=== PATIENT | female | born 1940 | race Caucasian/White ===

== ENCOUNTER → 2016-08-24 17:16 | Outpatient (CLI) | payer MEDICARE, OTHER, MEDICAID ==
[2016-06-22 14:11] VITALS: BMI 33.4
[~2016-08-24 17:16] MED LIST: ACETAMINOPHEN325 MG PO; ADVAIR 500/501 DISK INH; ASCORBIC ACID500 MG PO; ASPIRIN81 MG PO; ATROVENT 0.02%2.5 ML INH; ATROVENT 0.02%2.5 ML UPD; ATROVENT HFA12.9 GM INH; AUGMENTIN 875-11 TAB PO; AZOPT 1% OPHT D10 ML EACH EYE; BAYER CHEWABLE81 MG PO; BENICAR HCT 40-1 TA1 PO; BENZONATATE200 MG PO; BIOTIN5 MG PO; BROVANA15 MCG/2 M INH; BUMEX 1 MG TAB1 MG PO; CALCIUM 600 +1 EAC3 PO; CALTRATE 600 M600 M1 PO; CALTRATE-600600 MG PO; CARAFATE1 G PO; CARAFATE1 G/10 ML PO; CARBIDOPA-LEVO1 EAC2 PO; CATAPRES0.1 MG; CATAPRES0.1 MG PO; CELEBREX200 MG PO; CENTRUM COMPLE1 EACH PO; CENTRUM SILVER1 TA2 PO; CLEOCIN HCL150 MG PO; COLACE100 MG PEG; COLACE50 MG/5 ML PO; COREG 3.1253.125 MG PO; DIFLUCAN100 MG PO; DIFLUCAN150 MG PO; DOCUSOFT S100 MG PO; DOXEPIN HCL10 MG PO; DUONEB 2.5-0.5 M3 ML NEB; ESTRACE1 MG PO; FEOSOL LIQ300 MG/5 M PO; FERROUS SULFAT325 MG PO; FISH OIL 1,0001 CA1 PO; FISH OIL 1,2001 CA1 PO; FLUTICASONE PRO16 GM NASAL; FUROSEMIDE20 MG PO; GABAPENTIN100 MG PO; GLUCOTROL XL 1010 MG PO; GUAIFENESI100 MG/5 M NG; HUMALOG 30100 UNITS/ SC; HYDROCODON-ACE1 EAC7 PO; HYDROCODONE-APA1 TAB PO; IPRAT-ALBUT 0.5-3 ML NEB; IPRAT-ALBUT 0.5-3 ML UPD; ISOSORBIDE DINI30 MG PO; ISOSORBIDE MONO30 M1; ISOSORBIDE MONO30 M1 PO; JANUVIA50 MG PO; K-DUR20 MEQ PO; K-TAB10 MEQ PO; KEFLEX500 MG PO; KLONOPIN1 MG PEG; KLONOPIN1 MG PO; LASIX20 MG PO; LASIX40 MG PEG; LASIX40 MG PO; LEVAQUIN500 MG PO; LINZESS145 MCG PO; LIPITOR10 MG PO; LISINOPRIL10 MG PO; LOPRESSOR25 MG PO; LUMIGAN 0.01%2.5 ML EACH EYE; LUMIGAN 0.01%2.5 ML RIGHT EYE; LUMIGAN 0.03 %2.5 ML EACH EYE; MAG-OX 400 MG400 MG PO; MEDROL DOSE PACK4 MG PO; MELATONIN 10 M1 EACH PO; MELATONIN 3 MG1 TAB PO; METOPROLOL TART50 MG PO; METROGEL 0.75 %45 GM TOPICAL; METROGEL 0.75 %45 GM TP; MICRO-K10 MEQ PEG; MIRALAX17 GM PO; MIRALAX527 GM PO; MIRAPEX0.125 MG PO; MS CONTIN15 MG PO; MUCINEX D1 TAB.SR . PO; MUCINEX DM ER1 EAC1 PO; MULTI-DAY VITAM1 TAB PO; MYCELEX TROCHE10 MG PO; NEURONTIN 300300 MG PO; NEXIUM40 MG PO; NIFEREX-150 CAP1 CA3 PO; NITROSTAT0.4 MG SL; NORCO 10/325 TA1 TA1 PO; NORVASC10 MG PO; NUEDEXTA 20-101 EACH PO; NYSTATIN ORAL SU5 ML PEG; NYSTATIN ORAL SU5 ML PO; OMNICEF300 MG PO; ONCOLOGY MOUTHWA5 ML PO; PEPCID20 MG PO; PERFOROMIS20 MCG/21 INH; PERFOROMIS20 MCG/21 NEB; PLAVIX75 MG PO; POTASSIUM CHLO10 ME1 PO; POTASSIUM20 MEQ/15 PO; PRAVACHOL20 MG PO; PREDNISONE1 MG PO; PREDNISONE10 MG PO; PREDNISONE20 MG PO; PRENATABS RX TA1 TAB PO; PRENAVITE1 TAB PO; PROBIOTIC1 EAC1 PO; PROTONIX40 MG PO; PULMICORT0.5 MG/21 INH; PULMICORT0.5 MG/21 NEB; ROBAXIN-750750 MG PO; SENNA-C8.6 MG PO; SENOKOT-S TABLE1 TAB PO; SINEMET 25-1001 EACH PO; SINEMET 25/1001 TAB PO; SINEMET CR 50-1 EACH PO; SINEMET CR 51 TAB.S1 PO; SINEQUAN25 MG PO; SINEQUAN50 MG PO; SINGULAIR10 MG PO; SKELAXIN800 MG PO; STELAZINE5 MG PO; STERAPRED DS 1210 MG PO; TENORMIN100 MG PO; TENORMIN50 MG PO; TESSALON PERLE100 MG PO; TOPROL XL25 MG PO; TUMS500 MG PO; TUSSIONEX 5 ML S5 ML PO; TUSSIONEX PENN473 ML PO; TYLENOL325 MG PO; ULTRAM50 MG PO; VIBRAMYCIN 100100 MG PEG; VIBRAMYCIN 100100 MG PO; VITAMIN E1000 UNIT PO; VITAMIN E400 UNI2 PO; XALATAN 0.0052.5 ML EACH EYE; XOPENEX 1.1.25 MG/3 UPD; XOPENEX HFA15 GM INH; ZANAFLEX2 M1 PO; ZITHROMAX250 MG PO; ZITHROMAX500 MG PO; ZOFRAN4 MG PO; ZOFRAN8 MG PO; ZOSYN 3.3753.375 G1 IV; ZPAK PO; ZYRTEC10 MG PO
== END | disposition home or self-care (01) ==
LOC: D.MAMMO 13:15
DX: Z12.31 Encounter for screening mammogram for malignant neoplasm of breast (principal)

== ENCOUNTER 2016-08-26 11:39 | Inpatient (IN) | payer MEDICARE, OTHER, MEDICAID ==
[~2016-08-26] VITALS: Ht 162.6 cm; Wt 90.0 kg
[~2016-08-26 11:39] MED LIST changes: -BENZONATATE200 MG PO; -GUAIFENESI100 MG/5 M NG; -VIBRAMYCIN 100100 MG PEG
[2016-08-26 12:35] LABS: BASOPHILS 0.1 % (0.0-2.0); EOSINOPHILS 1.7 % (0-7); HEMATOCRIT 43.6 % (36.0-48.0); HEMOGLOBIN 14.1 g/dL (12-16); IMMATURE GRANULOCYTES 0.3 % (0-5); LYMPHOCYTES 17.6 % (15-50); MCH 30.1 pg (26.0-34.0); MCHC 32.3 g/dL (31.0-37.0); MCV 93.2 fL (80.0-100.0); MEAN PLATELET VOLUME 9.9 fL (7.4-10.4); MONOCYTES 5.4 % (2-11); NEUTROPHILS 74.9 % (40-80); PLATELET COUNT 238 10x3/uL (130-400); RBC 4.68 10x6/uL (4.00-5.40); RDW 14.9 % (11.5-14.5); WBC 14.5 10x3/uL (4.8-10.8)
[2016-08-26 12:59] LABS: ALBUMIN 3.3 g/dL (3.4-5.0); ANION GAP 6.7 mmol/L (8-16); BILIRUBIN - TOTAL 0.54 mg/dL (0.2-1.3); CALCIUM 9.6 mg/dL (8.5-10.1); CARBON DIOXIDE 37.3 mmol/L (21.0-32.0); CREATININE - SERUM 1.1 mg/dL (0.6-1.3); PROTEIN - SERUM 6.4 g/dL (6.4-8.2)
[2016-08-26 13:28] LABS: UDS - AMPHET NEGATIVE QUAL (NEGATIVE); UDS - BARB NEGATIVE QUAL (NEGATIVE); UDS - BENZO NEGATIVE QUAL (NEGATIVE); UDS - COCAINE NEGATIVE QUAL (NEGATIVE); UDS - METH NEGATIVE QUAL (NEGATIVE); UDS - OPIATE POSITIVE QUAL (NEGATIVE); UDS - PCP NEGATIVE QUAL (NEGATIVE); UDS - THC NEGATIVE QUAL (NEGATIVE)
[2016-08-26 13:39] LABS: APPEARANCE CLEAR (CLEAR); BILIRUBIN NEGATIVE (NEGATIVE); COLOR YELLOW (YELLOW); GLUCOSE NEGATIVE (NEGATIVE); KETONE NEGATIVE (NEGATIVE); LEUKOCYTE ESTERASE 2+ (NEGATIVE); NITRITE NEGATIVE (NEGATIVE); PROTEIN TRACE mg/dL (NEGATIVE); UROBILINOGEN NORMAL (NORMAL)
[2016-08-26 13:40] LABS: BACTERIA MANY /hpf (NONE SEEN); EPITHELIAL CELLS 0-5 /hpf (0-5); MUCUS <1+ /lpf (NONE SEEN); RED CELLS - URINE 0-5 /hpf (0-5); WHITE CELLS - URINE >50 /hpf (0-5)
[2016-08-26 19:01] LABS: HEMOGLOBIN A1C 7.3 % (4.8-6.0)
[2016-08-26] MEDS ORDERED: PEPCID20 MG PO (20:29)
--- NOTE | 2016-08-26 20:30 | NUR ---
PT ARRIVED ON UNIT VIE STRETCHER ESCORTED BY ER NURSES. TRANSFERRED TO BED AND POSITIONED FOR COMFORT. PT LETHARGIC BUT RESPONDS TO VOICE. SORTO CATHETER DRAINING TO GRAVITY WITH YELLOW URINE IN COLLECTION BAG. IV IN LEFT FA SALINE LOCKED. WILL MONITOR CLOSLEY FOR NEEDS.
--- NOTE | 2016-08-26 21:09 | NUR ---
CALLED [facility] TO REQUEST PAIN MED PER PT REQUEST. PER DR FLANAGAN SEDATING MEDS ARE ON HOLD TILL PT AWAKE AND ALERT. RECEIVED ORDER TO RESTART PUREED DIET FOR PLEASURE WITH THICKENED LIQUIDS. AND JEVITY 1.2 X6 CANS DAILY BOLUS FEEDS.
--- NOTE | 2016-08-26 22:24 | NUR ---
HS MEDICATIONS GIVEN VIA PEG TUBE. GAVE 1 CAN JEVITY 1.2 VIA PEG TUBE PER DIET ORDERS. WILL CONTINUE TO MONITOR FOR NEEDS. CALL LIGHT WITHIN REACH.
--- NOTE | 2016-08-26 22:30 | NUR ---
GAVE 4 OZ THICKENED APPLE JUICE PER PT REQUEST. SAT UP AT 90 DEGREES. PT TOLERATED WELL.
[2016-08-26 23:08] VITALS: BP 109/50; BMI 34.1
--- NOTE | 2016-08-26 23:25 | NUR ---
ADMISSION ASSESSMENT AND HISTORY COMPLETED.
[2016-08-27 02:30] VITALS: BP 142/91
--- NOTE | 2016-08-27 02:47 | NUR ---
PT WAS WALKING PASS THE DESK, FULLY DRESSED WITH HER SHOES ON. ASKER HER WHERE SHE WAS GOING, AND SHE SAID SHE WAS GOING TO GET HER SOMETHING TO EAT. ENCOURAGED HER TO GO BACK TO ROOM AND UNDRESSED TO FIND THE SORTO TUBING DISCONNECTED, AND DRIPPING DOWN HER LEG. RE-CONNECTED SORTO TUBING AND PLACED GOWN ON PT. SHE ASKED FOR A "CAN OF MILK". GAVE HER A CAN OF JEVITY 1.2 VIA PEG TUBE, AND 1 CUP OF APPLE JUICE, HONEY THICKENED, WITH PT SITTING UP AT 90 DEGREES. SHE CALLED A FAMILY MEMBER, WHO TOLD HER THEY WOULD BE HERE IN THE AM.
--- NOTE | 2016-08-27 03:35 | NUR ---
PT RESTING QUIETLY IN SEMI KRISHNA'S POSITION WITH EYES CLOSED AND EASY RESPIRATIONS. BED ALARM IN USE FOR SAFETY.
[2016-08-27 06:42] LABS: BASOPHILS 0.1 % (0.0-2.0); EOSINOPHILS 1.3 % (0-7); HEMATOCRIT 43.3 % (36.0-48.0); IMMATURE GRANULOCYTES 0.3 % (0-5); LYMPHOCYTES 14.4 % (15-50); MCH 29.9 pg (26.0-34.0); MCHC 32.3 g/dL (31.0-37.0); MCV 92.3 fL (80.0-100.0); MEAN PLATELET VOLUME 9.5 fL (7.4-10.4); MONOCYTES 6.3 % (2-11); NEUTROPHILS 77.6 % (40-80); RBC 4.69 10x6/uL (4.00-5.40); RDW 14.7 % (11.5-14.5); WBC 14.5 10x3/uL (4.8-10.8)
[2016-08-27 06:49] LABS: PLATELET COUNT 184 10x3/uL (130-400)
[2016-08-27 07:19] LABS: CALCIUM 8.7 mg/dL (8.5-10.1); POTASSIUM - SERUM 3.5 mmol/L (3.5-5.1)
[2016-08-27 07:34] LABS: CREATININE - SERUM 0.8 mg/dL (0.6-1.3)
[2016-08-27 07:35] LABS: ANION GAP 4.5 mmol/L (8-16)
--- NOTE | 2016-08-27 08:10 | NUR ---
ASSESSMENT PER FLOW SHEET.PT WITHOUT DISTRESS.FALL PREVENTION IN PROGRESS.BED ALARM BED ON AND FUNCTIONING.CALL LIGHT IN REACH.DOOR OPEN
[2016-08-27 08:35] VITALS: BP 148/75
--- NOTE | 2016-08-27 12:00 | NUR ---
REMAINS WITHOUT NEEDS,WITHOUT DISTRESS.CONT TO MONITOR
[2016-08-27 12:36] VITALS: Ht 162.6 cm; Wt 90.0 kg
[2016-08-27 13:31] VITALS: BP 147/77
[2016-08-27 16:17] VITALS: BP 166/70
--- NOTE | 2016-08-27 17:57 | NUR ---
REMAINS WITHOUT CHANGE.CONT PLAN OF CARE
--- NOTE | 2016-08-27 19:00 | NUR ---
BEDSIDE REPORT RECEIVED AND CARE OF PT ASSUMED. PT LYING IN SEMI KRISHNA'S POSITION WITH EYES CLOSED. SORTO CATHETER DRAINING TO GRAVITY WITH YELLOW URINE IN COLLECTION BAG. O2 IN USE AT 4L VIA NC. TELEMETRY IN PLACE, REPLACED BATTERIES...WILL CHECK ON READING. SIDE RAILS UP X2 FOR SAFETY. BED ALARM IN USE.
[2016-08-27 20:00] VITALS: BP 148/71
--- NOTE | 2016-08-27 21:15 | NUR ---
HS MEDICATIONS GIVEN...PILLS PO WITH APPLESAUCE WITH PT SITTING UP AT 90 DEGREES. GAVE LIQUID POTASSIUM VIA PEG TUBE. GAVE 1 CAN JEVITY 1.2 PER ORDER. FLUSHED TUBE WITH 60 ML OF WATER. WILL CONTINUE TO MONITOR FOR NEEDS.
--- NOTE | 2016-08-28 00:05 | NUR ---
ALARM SOUNDING...PT UP IN ROOM CARRYING AROUND A STOOL COVERED PINK PAD. RE-ORIENTED PT AND LED HER TO TOILET WHERE SHE FINISHED HAVING BM. BATHED HER AND CHANGED GOWN AND ALL LINENS. CHANGED ALL TELEMETRY PADS. CHANGED DRESSING AROUND PEG TUBE. POSITIONED PT BACK IN BED FOR COMFORT. WILL CONTINUE TO MONITOR FOR NEEDS. BED ALARM IN USE. SIDE RAILS UP X3 FOR SAFETY. CALL LIGHT WITHIN REACH.
--- NOTE | 2016-08-28 03:40 | NUR ---
BED ALARM SOUNDING...ENTERED ROOM TO FIND PT CLIMBING OUT OF BED HOLDING HER SORTO BAG TO HER CHEST, SAYING SHE NEEDS TO GET OUT OF HERE. RE-ORIENTED PT TO SITUATION. SHE REQUESTED "CAN OF MILK"...GAVE 1 CAN JEVITY 1.2 PER ORDER, AND FLUSHED WITH 60 ML OF WATER. PT RESTING QUIETLY AT THIS TIME. WILL CONTINUE TO MONITOR FOR NEEDS.
[2016-08-28 04:00] VITALS: BP 119/58
[2016-08-28 05:50] LABS: BASOPHILS 0 % (0.0-2.0); EOSINOPHILS 0 % (0-7); HEMATOCRIT 44.8 % (36.0-48.0); HEMOGLOBIN 14.6 g/dL (12-16); IMMATURE GRANULOCYTES 0.4 % (0-5); LYMPHOCYTES 5.3 % (15-50); MCH 30.1 pg (26.0-34.0); MCHC 32.6 g/dL (31.0-37.0); MCV 92.4 fL (80.0-100.0); MEAN PLATELET VOLUME 10.7 fL (7.4-10.4); MONOCYTES 0.3 % (2-11); PLATELET COUNT 178 10x3/uL (130-400); RBC 4.85 10x6/uL (4.00-5.40); RDW 14.3 % (11.5-14.5); WBC 15.4 10x3/uL (4.8-10.8)
[2016-08-28 06:16] LABS: ANION GAP 10.2 mmol/L (8-16); CALCIUM 9.6 mg/dL (8.5-10.1); CARBON DIOXIDE 32.1 mmol/L (21.0-32.0); CREATININE - SERUM 0.9 mg/dL (0.6-1.3)
[2016-08-28 06:24] LABS: POTASSIUM - SERUM 4.3 mmol/L (3.5-5.1)
[2016-08-28 08:13] VITALS: BP 127/56
--- NOTE | 2016-08-28 09:00 | NUR ---
ASSESSMENT PER FLOW SHEET.PT WITHOUT DITRESS.UP AND ABOUT IN ROOM,GAIT STEADY.PT UP TO CHAIR.CALL LIGHT IN REACH.MONITR FOR NEEDS
[2016-08-28 12:26] VITALS: BP 125/73
--- NOTE | 2016-08-28 14:30 | NUR ---
FAMILY AT BEDSIDE,WITHOUT DISTRESS.CALL LIGHT IN REACH.
--- NOTE | 2016-08-28 15:56 | NUR ---
Patient Name: CODY SCHAEFER Admission Status: ER Accout number: [id number] Admission Date: 08-26-2016 : 1940 Admission Diagnosis:CHRONIC OBSTRUCTIVE PULMON DISEASE W ACUTE LOWER RESP I Attending: BRITTANEY Current LOS: 2 Anticipated DC Date: 09-01-2016 Planned Disposition: Home with Home Health Primary Insurance: MEDICARE A & B Discharge Planning Comments: CM MET WITH PATIENT REGARDING D/C NEEDS AND PLANS. PATIENT STATED SHE LIVES WITH HER DAUGHTER (VERÓNICA) AND THERE ARE 2 STEPS TO ENTER HOME AND NO STAIRS INSIDE. PATIENT STATED SHE HAS BEEN WALKING W/O A WALKER AT HOME BUT HAS A WALKER, OXYGEN, PORTABLE O2, CANE, BS COMMODE, SHOWER CHAIR, AND NEBULIZER AT HOME. PATIENT IS CURRENT WITH [email or web address] W/PT. PATIENTS PCP IS DR. FLANAGAN AND PHARMACY IS [facility]. PATIENT STATED HER NEIGHBOR ([place]) WILL DRIVE HER HOME WHEN DISCHARGED. CM WILL CONTINUE TO FOLLOW PATIENT WITH D/C NEEDS AND PLANS. PCP DR. PANCHIT[facility]- [phone] VERÓNICA ISAÍAS (DAUGHTER) [phone] FEMI POLLACK (SON) [phone] Hair Dresser: Arlettetye Roman Is the patient Alert and Oriented? Yes 0 * How many steps to enter\exit or inside your home? 2 W/RAILS 0 * PCP DR. FLANAGAN 0 * Pharmacy [facility] 0 * Preadmission Environment Home with Family 0 * ADLs Partial Dependent 0 * Partial ADLs (Assistance needed) Medication Management 0 * Equipment Bedside Commode Cane Nebulizer Oxygen Shower Chair Walker Wheelchair 0 * List name and contact numbers for known caregivers / representatives who currently or will assist patient after discharge: FEMI POLLACK [phone] VERÓNICA METZ [phone] * Community resources currently utilized Home Health 0 * Please name any agencies selected above. [email or web address] 0 * Additional services required to return to the preadmission environment? Yes 0 * Can the patient safely return to the preadmission environment? Yes 0 * Has this patient been hospitalized within the prior 30 days at any hospital? No 0 Grand Total: 0
[2016-08-28 16:02] VITALS: BP 136/87
--- NOTE | 2016-08-28 18:47 | NUR ---
REMAINS WITHOUT NEEDS,WITHOUT CHANE FROM INITIAL ASSESSMENT.CONT PLAN OF CARE
[2016-08-28 21:00] VITALS: BP 157/72
--- NOTE | 2016-08-29 00:06 | NUR ---
AWAKE IN BED GETTING A COMPLETE BEDBATH BY TIPPLE REPAIRER. GOOD MOOD AND NO DISTRESS NOTED. THE BED IS LOW, RAILS UP X'S 2 WITH THE CALL LIGHT AT HAND.
--- NOTE | 2016-08-29 00:08 | NUR ---
PT IS UP IN BEDSIDE CHAIR EATING A SNACK. HE C/O A HEADACHE AND ASSIGNED NURSE WAS FOUND TO BE AWARE AND GETTING HIS PAIN MEDS ORDERED. THE BED IS LOW, RAILS UP X'S 2 WITH THE CALL LIGHT AT HAND.
[2016-08-29 02:15] VITALS: BP 145/72
[2016-08-29 04:00] VITALS: BP 144/75
[2016-08-29 06:48] LABS: MCHC 32.6 g/dL (31.0-37.0); MEAN PLATELET VOLUME 9.9 fL (7.4-10.4); PLATELET COUNT 244 10x3/uL (130-400); RDW 14.3 % (11.5-14.5); WBC 26.2 10x3/uL (4.8-10.8)
[2016-08-29 06:59] LABS: ANION GAP 10.6 mmol/L (8-16); CALCIUM 9.9 mg/dL (8.5-10.1); CARBON DIOXIDE 31.4 mmol/L (21.0-32.0); CREATININE - SERUM 0.9 mg/dL (0.6-1.3)
[2016-08-29 07:07] LABS: LYMPHOCYTES 9 % (15-50); MONOCYTES 2 % (2-11); NEUTROPHILS 86 % (40-80); PLATELET ESTIMATE NORMAL
[2016-08-29 10:36] VITALS: BP 126/61
[2016-08-29 11:32] VITALS: BP 116/62
[2016-08-29 15:12] VITALS: BP 135/62
[2016-08-29 20:00] VITALS: BP 148/68
[2016-08-30] VITALS: BP 116/71
[2016-08-30 04:00] VITALS: BP 119/68
--- NOTE | 2016-08-30 05:45 | NUR ---
PATIENT LAYING IN BED, MODERATE AMOUNT OF PAIN NOTED BY PATIENT DURING THE NIGHT, ALERT AND ORIENTED WITH CPAP ON. SORTO CATHETER IN PLACE. BED IN LOWEST LOCKED POSITION, CALL LIGHT WITHIN REACH, HOB ELEVATED 20 DEGREES.
[2016-08-30 05:55] LABS: BASOPHILS 0 % (0.0-2.0); EOSINOPHILS 0.1 % (0-7); HEMATOCRIT 42.1 % (36.0-48.0); HEMOGLOBIN 13.6 g/dL (12-16); IMMATURE GRANULOCYTES 0.2 % (0-5); LYMPHOCYTES 9.4 % (15-50); MCH 29.6 pg (26.0-34.0); MCHC 32.3 g/dL (31.0-37.0); MCV 91.5 fL (80.0-100.0); MEAN PLATELET VOLUME 9.9 fL (7.4-10.4); MONOCYTES 1.8 % (2-11); NEUTROPHILS 88.5 % (40-80); PLATELET COUNT 200 10x3/uL (130-400); RDW 14.2 % (11.5-14.5)
[2016-08-30 06:23] LABS: ANION GAP 11.3 mmol/L (8-16); CALCIUM 8.8 mg/dL (8.5-10.1); CARBON DIOXIDE 31.6 mmol/L (21.0-32.0); CREATININE - SERUM 0.8 mg/dL (0.6-1.3); POTASSIUM - SERUM 3.9 mmol/L (3.5-5.1)
--- NOTE | 2016-08-30 07:30 | NUR ---
SLEEPING QUIETLY AT PRESENT RESP EVEN AND UNLABORED AT PRESENT 02 AT 2L N/C QUIET IN ROOM N/C VOICED.
--- NOTE | 2016-08-30 09:00 | NUR ---
SITTING UP IN CHAIR 02 CONT AT 2L N/C AT PRESENT.
[2016-08-30 09:01] VITALS: BP 126/62
--- NOTE | 2016-08-30 10:00 | NUR ---
WATCHING TV AT PRESENT DENIES ANY NEEDS AT PRESENT.
--- NOTE | 2016-08-30 12:00 | NUR ---
LUNCH TAKEN 100% AT PRESENT.
[2016-08-30 12:06] VITALS: BP 150/69
--- NOTE | 2016-08-30 14:00 | NUR ---
UP IN CHAIR AT PRESENT DANIEL WELL AT PRESENT.
--- NOTE | 2016-08-30 16:00 | NUR ---
FAMILY AT BEDSIDE AT PRESENT N/C AT PRESENT.
[2016-08-30 16:26] VITALS: BP 124/63
--- NOTE | 2016-08-30 18:28 | NUR ---
STATUS REMAINS UNCHGD AT PRESENT.
[2016-08-30 19:00] VITALS: BP 122/70
[2016-08-31] VITALS: BP 120/57
[2016-08-31 04:00] VITALS: BP 136/61
--- NOTE | 2016-08-31 04:00 | NUR ---
PATIENT SLEEPING WITH NO DISTRESS NOTED. O2 @ 2L VIA NC. LEFT PORT SL WITH DRESSING CDI. SCD'S ON. SRX2. BED LOW. CALL LIGHT WITHIN REACH.
--- NOTE | 2016-08-31 04:35 | NUR ---
PATIENT'S CALLED THE FLOOR AND WAS INFORMED OF THE PATIENT'S FALL, AND OF SKIN TEAR TO THE LEFT FOREARM.
--- NOTE | 2016-08-31 04:49 | NUR ---
1 CAN OF JEVITY 1.2 GIVEN THROUGH PEG TUBE THEN FLUSHED WITH 60mL WATER, ALL GRAVITY FEEDS, PER PATIENT'S REQUEST.
[2016-08-31 05:38] LABS: BASOPHILS 0 % (0.0-2.0); EOSINOPHILS 0 % (0-7); HEMATOCRIT 40.5 % (36.0-48.0); HEMOGLOBIN 13.9 g/dL (12-16); IMMATURE GRANULOCYTES 0.4 % (0-5); LYMPHOCYTES 8.9 % (15-50); MCHC 34.3 g/dL (31.0-37.0); MCV 90.2 fL (80.0-100.0); MEAN PLATELET VOLUME 9.8 fL (7.4-10.4); MONOCYTES 3.5 % (2-11); NEUTROPHILS 87.2 % (40-80); PLATELET COUNT 176 10x3/uL (130-400); RBC 4.49 10x6/uL (4.00-5.40); RDW 13.7 % (11.5-14.5); WBC 11.9 10x3/uL (4.8-10.8)
[2016-08-31 06:05] LABS: ALKALINE PHOSPHATASE 62 U/L (46-116); ALT (SGPT) 11 U/L (10-68); BILIRUBIN - TOTAL 0.54 mg/dL (0.2-1.3); CALC OSMOLALITY 283 mosm/kg (275-300); CALCIUM 8.9 mg/dL (8.5-10.1); CARBON DIOXIDE 29.9 mmol/L (21.0-32.0); CHLORIDE - SERUM 103 mmol/L (98-107); CREATININE - SERUM 0.7 mg/dL (0.6-1.3); GLUCOSE 175 mg/dL (74-106); POTASSIUM - SERUM 4.1 mmol/L (3.5-5.1); PROTEIN - SERUM 6.1 g/dL (6.4-8.2); SODIUM 140 mmol/L (136-145); UREA NITROGEN 15 mg/dL (7-18); eGFR NON AFRICAN AMERICAN 86 mL/min (90-120)
--- NOTE | 2016-08-31 07:55 | NUR ---
ASSESSMENT PER FLOW SHEET.PT WITHOUT DISTRESS.DENIES NEEDS. CALL LIGHT IN REACH.ISOLATION MAINTAINED
[2016-08-31 08:18] VITALS: BP 139/63
[2016-08-31 12:27] VITALS: BP 136/60
--- NOTE | 2016-08-31 14:46 | NUR ---
NUTRITION MONITORING & EVAL CHART REVIEWED. PT REMAINS IN ISOLATION. ADA PUREED DIET. GOOD PO INTAKE PER NURSING REPORT. JEVITY 1.[address] FOLLOWING
[2016-08-31 15:55] VITALS: BP 125/67
[2016-08-31 19:00] VITALS: BP 128/67
--- NOTE | 2016-08-31 20:00 | NUR ---
ASSESSMENT PER FLOWSHEET. IV INFUSAPORT PATENT TO THE LEFT CHEST SALINE LOCKED. PEG TUBE PATENT AND CLAMPED. TELM. SHOWS SR WITH HR 78. O2 ON 2L/M PER NC NO DISTRESS. SR UP X2 CALL LIGHT WITHIN REACH. PT IN CONTACT ISOLATION FOR [place] IN THE URINE. [facility] STUDENTS CARING FOR PATIENT THIS EVENING.
--- NOTE | 2016-08-31 21:15 | NUR ---
MEDS GIVEN PER MAR PER [facility] STUDENT AND INSTRUCTOR. PT ASSISTED UP TO BR VOIDS IN COMMODE.
--- NOTE | 2016-08-31 23:30 | NUR ---
RESTING QUIETLY DENIES NEEDS.
--- NOTE | 2016-09-01 01:30 | NUR ---
EYE CLOSED RPIRATION WITH EASE AND UNLABORED.
--- NOTE | 2016-09-01 03:28 | NUR ---
RESTING QUIETLY RESPIRATIONS WITH EASE AND UNLABORED.
[2016-09-01 04:00] VITALS: BP 150/73
[2016-09-01 05:39] LABS: BASOPHILS 0 % (0.0-2.0); EOSINOPHILS 0.1 % (0-7); HEMATOCRIT 41.4 % (36.0-48.0); HEMOGLOBIN 13.7 g/dL (12-16); IMMATURE GRANULOCYTES 0.2 % (0-5); LYMPHOCYTES 10.5 % (15-50); MCH 29.8 pg (26.0-34.0); MCHC 33.1 g/dL (31.0-37.0); MCV 90.2 fL (80.0-100.0); MEAN PLATELET VOLUME 9.9 fL (7.4-10.4); MONOCYTES 4.9 % (2-11); NEUTROPHILS 84.3 % (40-80); PLATELET COUNT 182 10x3/uL (130-400); RBC 4.59 10x6/uL (4.00-5.40); RDW 13.9 % (11.5-14.5); WBC 12.1 10x3/uL (4.8-10.8)
--- NOTE | 2016-09-01 06:06 | NUR ---
MEDS GIVEN PO PER MAR. NO CHANGES IN ASSESSMENT PT HAS VOIDED TONIGHT.
[2016-09-01 06:09] LABS: CALC OSMOLALITY 283 mosm/kg (275-300); CALCIUM 8.7 mg/dL (8.5-10.1); CARBON DIOXIDE 30.6 mmol/L (21.0-32.0); CHLORIDE - SERUM 103 mmol/L (98-107); CREATININE - SERUM 0.7 mg/dL (0.6-1.3); GLUCOSE 149 mg/dL (74-106); POTASSIUM - SERUM 4.1 mmol/L (3.5-5.1); SODIUM 140 mmol/L (136-145); UREA NITROGEN 17 mg/dL (7-18); eGFR NON AFRICAN AMERICAN 86 mL/min (90-120)
[2016-09-01 07:59] VITALS: BP 120/81
--- NOTE | 2016-09-01 09:00 | NUR ---
ASSESSMENT PER FLOW SHEET.PT WITHOUT DISTRESS.CALL LIGHT IN REACH.ASSIST OF TO BATHROOM AND BACK TO BED.ISOLATION MAINTAINED.
[2016-09-01] MEDS ORDERED: PREDNISONE10 MG PO (10:10)
[2016-09-01 12:06] VITALS: BP 136/59
--- NOTE | 2016-09-01 13:01 | NUR ---
IV ABX COMPLETE.PORT NEEDLE DCD.PT TOLERATED WELL.DISCHARGE INSTRUCTIONS PREVIOUSLY,PT STATES UNDERSTANDING.
--- NOTE | 2016-09-01 13:15 | NUR ---
LEFT FLOOR VIA WHEELCHAIR FOR TRANSPORT HOME
--- NOTE | 2016-09-01 13:19 | NUR ---
CM REASSESSMENT NOTE: PATIENT D/C HOME TODAY BY PRIVATE VEHICLE. CURRENT WITH [facility] - RESUMPTION OF CARE.
--- NOTE | 2016-09-25 13:49 | CN ---
PATIENT NAME:CODY THOMPSON MEDICAL RECORD: [id number] : 42 LOCATION:D.MS [facility]25 ADMIT DATE: 08/26/16 ACCOUNT: [id number] CONSULTING PHYSICIAN: EDGAR WILSON MD REFERRING PHYSICIAN: SHRUTHI FLANAGAN M.D. DATE OF CONSULTATION: 08/27/2016 CONSULT REQUESTING PHYSICIAN: Shruthi Flanagan MD REASON FOR CONSULTATION: Acute exacerbation of chronic obstructive pulmonary disease, leukocytosis, pneumonia, left lower lobe. HISTORY OF PRESENT ILLNESS: Ms. Thompson is a 76-year-old female with a history of COPD, Parkinson's disease. Currently, she was brought into the ER. The patient was confused. According to the son, she might have taken extra pain medications. Now, she is more awake and alert. She had significant leukocytosis on admission. Denies any fever and chill. She is still eating by mouth as well as she has a PEG tube. REVIEW OF SYSTEMS: Mainly in the history of present illness. PAST MEDICAL HISTORY: 1. Chronic obstructive pulmonary disease, home oxygen dependent. 2. Chronic hypoxic respiratory failure. 3. Parkinson disease. 4. Fibromyalgia. 5. Migraine headache. 6. History of glaucoma. 7. Hypertension. 8. Congestive heart failure. 9. Coronary artery disease. 10. Renal disease. 11. History of obstructive sleep apnea, on CPAP. PAST SURGICAL HISTORY: 1. Hysterectomy. 2. Cholecystectomy. 3. Herniorrhaphy. 4. Cataract surgery. 5. Colon resection secondary to bowel obstruction status post PEG tube placement. ALLERGIES: SHE IS ALLERGIC TO BARBITURATES, ALBUTEROL, BUSPIRONE, STADOL, VALIUM, DILAUDID, IODINE, LEVOFLOXACIN, LISINOPRIL, LORAZEPAM, COMPAZINE, PHENERGAN, AND DARVOCET. MEDICATIONS: She is on Zithromax IV. She is on Rocephin IV, Xopenex nebulizer, Brovana and budesonide nebulizer. Her medication is reviewed. PERSONAL AND SOCIAL HISTORY: The patient is an ex-smoker. She is a nondrinker. FAMILY HISTORY: Noncontributory. PHYSICAL EXAMINATION: GENERAL: Now, the patient is lying comfortably. She is not in acute distress. CONSULT REPORT [id number] CODY THOMPSON VITAL SIGNS: The blood pressure is 147/77, pulse is 100, respirations 16, temperature 99.1, and SpO2 is 93% on 4 liters. HEENT: Conjunctivae pink, sclerae nonicteric. NECK: Supple, no JVD. CHEST: Excursion is minimal on both sides. There are bilateral crackles. Wheeze on forceful expiration. HEART: Regular, normal sound, no murmur. ABDOMEN: Soft, bowel sounds present. No hepatosplenomegaly. RECTAL: Deferred. EXTREMITIES: No cyanosis, no clubbing, no pedal edema. SKIN: Warm, normal turgor. CENTRAL NERVOUS SYSTEM: The patient is awake and alert. There is increased muscle tone. LABORATORY DATA: CBC: WBC is 14.5, hemoglobin 14.1, hematocrit 43.6, and the platelet count is 238. Chemistry: Sodium 142, potassium 3.5, BUN is 26, creatinine 0.8, and glucose 135. Toxic screen positive for opiates. IMPRESSION: 1. Acute exacerbation of chronic obstructive pulmonary disease. 2. Pneumonia, left lower lobe, possible community-acquired pneumonia, possibly aspiration with the patient's history of dysphagia. 3. Leukocytosis. 4. Acute mental status changes, possible metabolic encephalopathy secondary to pneumonia infection, possible narcotic. 5. Parkinson disease. 6. Chronic hypoxic respiratory failure. 7. Gastroesophageal reflux disease. RECOMMENDATION: 1. We will follow the swallowing evaluation and aspiration precaution. 2. Continue Rocephin and Zithromax. 3. Xopenex nebulizer. Add ipratropium nebulizer, Brovana, budesonide nebulizer. Start methylprednisolone IV. 4. Follow up labs and chest radiograph in the morning. Dr. Flanagan, once again thanks for involving me in the care of Ms. Thompson. TRANSINT:[id number] Voice Confirmation ID: [id number] DOCUMENT ID: [id number] EDGAR WILSON MD at 1349 CC: SHRUTHI FLANAGAN M.D. [id number] DICTATION DATE: 08/27/16 1417 CONCRETE SPREADER: 08/27/16 1450 DIS IN 09/01/16 [place] [id number] [facility] [place] [address]
== END 2016-09-01 13:15 | disposition home health service (06) | DRG 190 ==
LOC: D.ER 11:39 → D.MS 18:49
PROVIDERS: Emergency Medicine; ADMIT Family Medicine
PROC: 0T9B70Z Drainage of Bladder with Drainage Device, Via Natural or Artificial Opening (ICD-10-PCS; principal; 2016-08-26)
DX: J44.0 Chronic obstructive pulmonary disease with (acute) lower respiratory infection (principal); J18.1 Lobar pneumonia, unspecified organism; G93.41 Metabolic encephalopathy; N39.0 Urinary tract infection, site not specified; J96.10 Chronic respiratory failure, unspecified whether with hypoxia or hypercapnia; G20 Parkinson's disease; G62.9 Polyneuropathy, unspecified; Z86.73 Personal history of transient ischemic attack (TIA), and cerebral infarction without residual deficits; J44.1 Chronic obstructive pulmonary disease with (acute) exacerbation; M79.7 Fibromyalgia; I25.10 Atherosclerotic heart disease of native coronary artery without angina pectoris; R13.10 Dysphagia, unspecified; K21.9 Gastro-esophageal reflux disease without esophagitis; E11.65 Type 2 diabetes mellitus with hyperglycemia; B96.20 Unspecified Escherichia coli [E. coli] as the cause of diseases classified elsewhere; B96.89 Other specified bacterial agents as the cause of diseases classified elsewhere; I10 Essential (primary) hypertension; G89.29 Other chronic pain; K58.9 Irritable bowel syndrome, unspecified; Z12.31 Encounter for screening mammogram for malignant neoplasm of breast

== ENCOUNTER 2016-09-06 13:03 | Inpatient (IN) | payer MEDICARE, OTHER, MEDICAID ==
[~2016-09-06] VITALS: Ht 162.6 cm; Wt 86.2 kg
[2016-09-06 13:53] LABS: BASOPHILS 0.1 % (0.0-2.0); EOSINOPHILS 0.1 % (0-7); HEMATOCRIT 39.1 % (36.0-48.0); HEMOGLOBIN 12.6 g/dL (12-16); IMMATURE GRANULOCYTES 0.3 % (0-5); LYMPHOCYTES 3.6 % (15-50); MCH 29.8 pg (26.0-34.0); MCHC 32.2 g/dL (31.0-37.0); MCV 92.4 fL (80.0-100.0); MEAN PLATELET VOLUME 9.6 fL (7.4-10.4); MONOCYTES 4.4 % (2-11); NEUTROPHILS 91.5 % (40-80); PLATELET COUNT 149 10x3/uL (130-400); RBC 4.23 10x6/uL (4.00-5.40); RDW 15.3 % (11.5-14.5); WBC 15.5 10x3/uL (4.8-10.8)
[2016-09-06 14:21] LABS: ALBUMIN 2.7 g/dL (3.4-5.0); BILIRUBIN - TOTAL 0.5 mg/dL (0.2-1.3); CALCIUM 8.5 mg/dL (8.5-10.1); CREATININE - SERUM 0.8 mg/dL (0.6-1.3); MAGNESIUM - SERUM 1.8 mg/dL (1.8-2.4); POTASSIUM - SERUM 4.2 mmol/L (3.5-5.1); PROTEIN - SERUM 5.7 g/dL (6.4-8.2)
[2016-09-06 14:24] LABS: ANION GAP 7.9 mmol/L (8-16); TROPONIN-I 0.016 ng/mL (0.000-0.060)
[2016-09-06 14:25] LABS: CARBON DIOXIDE 41.3 mmol/L (21.0-32.0)
--- NOTE | 2016-09-06 15:39 | NUR ---
Patient Name: CODY SCHAEFER Admission Status: ER Accout number: [id number] Admission Date: 09-06-2016 : 1940 Admission Diagnosis: Resp Failure Attending: TOI Current LOS: 1 Anticipated DC Date: 09-11-2016 Planned Disposition: Return home with daughter and [facility]. Primary Insurance: MEDICARE A & B Discharge Planning Comments: Cm met with patient to complete initial discharge planning assessment. Patient on BIPBP resting in the ER. CM spoke to patient's daughter Marlen who gave consent to complete assessment. Marlen reports patient lives at home with her, has [facility], and CG assistance from 8-2:30 7 days a week. Marlen reports patient will return to her home at discharge with resumption of [facility] and continuation of cg's services daily. CM will continue to follow and assist with dc plan/needs. Welding Machine Operator Electro Gas: Kiera Cleveland RN, [facility] [phone] Is the patient Alert and Oriented? Yes * How many steps to enter\exit or inside your home? TWO * PCP Dr. Ramirez * Pharmacy [facility] * Preadmission Environment Home with Family * ADLs Partial Dependent * Partial ADLs (Assistance needed) Bathing Dressing Medication Management Transfers * Equipment Bedside Commode [facility] Bed Oxygen Rolling Walker * Other Equipment [facility] * List name and contact numbers for known caregivers / representatives who currently or will assist patient after discharge: Marlen Swift - daughter - [phone] [employer] son - [phone] * Community resources currently utilized Home Health Private Duty Care * Please name any agencies selected above. [facility] CG's 7 days a week from 8-2:30 * Additional services required to return to the preadmission environment? No * Can the patient safely return to the preadmission environment? Yes * Has this patient been hospitalized within the prior 30 days at any hospital? Yes
[2016-09-06 16:36] VITALS: BP 122/63; BMI 32.7
--- NOTE | 2016-09-06 19:55 | NUR ---
PATIENT RESTING IN BED. BIPAP IN PLACE. NO SIGNS OF DISTRESS NOTED. DENIES ANY NEEDS AT THIS TIME. BED LOW. CALL LIGHT IN REACH.
[2016-09-06 21:00] VITALS: BP 137/69
[2016-09-07 01:00] VITALS: BP 128/70
[2016-09-07 05:00] VITALS: BP 131/80
[2016-09-07 05:14] LABS: BASOPHILS 0.1 % (0.0-2.0); EOSINOPHILS 0 % (0-7); HEMATOCRIT 39.5 % (36.0-48.0); HEMOGLOBIN 12.8 g/dL (12-16); IMMATURE GRANULOCYTES 0.3 % (0-5); LYMPHOCYTES 1.1 % (15-50); MCH 29.8 pg (26.0-34.0); MCHC 32.4 g/dL (31.0-37.0); MCV 92.1 fL (80.0-100.0); MEAN PLATELET VOLUME 9.9 fL (7.4-10.4); MONOCYTES 2.2 % (2-11); NEUTROPHILS 96.3 % (40-80); PLATELET COUNT 154 10x3/uL (130-400); RBC 4.29 10x6/uL (4.00-5.40); RDW 14.9 % (11.5-14.5); WBC 15.3 10x3/uL (4.8-10.8)
--- NOTE | 2016-09-07 05:30 | NUR ---
ASSISTED STAFFANI PULLING THE PATIENT UP IN BED AND REPOSITIONING HER. PATIENT DENIES OTHER NEEDS AT THIS TIME. BED IN LOWEST POSITION AND CALL LIGHT WITHIN REACH.
[2016-09-07 05:31] LABS: CREATININE - SERUM 0.9 mg/dL (0.6-1.3); MAGNESIUM - SERUM 2.2 mg/dL (1.8-2.4); PHOSPHOROUS 4.2 mg/dL (2.5-4.9); POTASSIUM - SERUM 3.7 mmol/L (3.5-5.1)
[2016-09-07 05:50] LABS: ANION GAP 7.7 mmol/L (8-16)
[2016-09-07 07:59] VITALS: BP 139/72
--- NOTE | 2016-09-07 08:14 | NUR ---
PT. AOX4 RESP LABORED BIPAP REMOVED VIA PT. REQUEST AT THIS TIME. PT. DENIES NEEDS AT THIS TIME. LEFT SUBCLAVIAN PORT PATENT AND FUNCTIONING PROPERLY. BED AT LOWEST SETTING AND CALL LIGHT WITHIN REACH. WILL CONTINUE TO MONITOR
[2016-09-07 11:31] VITALS: BP 140/72
[2016-09-07 12:21] VITALS: Ht 162.6 cm; Wt 86.2 kg
[2016-09-07 16:12] VITALS: BP 146/71
--- NOTE | 2016-09-07 19:10 | NUR ---
RECIEVED SHIFT REPORT. PT IS LYING IN BED. ALERT AND ORIENTED AND ABLE TO VERBALIZE NEEDS. IV IS PATENT AND ANTIBIOTIC RUNNING AT THIS TIME. O2 @ 4 PER NASAL CANNULA AT THIS TIME. BIPAP IS AT THE BEDSIDE IF NEEDED. SORTO IS DRAINING URINE BY GRAVITY. PT REQUIRES SOME ASSISTANCE TURNING IN BED FOR COMFORT AND SKIN CARE. PEG TUBE TO LEFT ABDOMEN PATENT AND FEED RUNNING PER ORDER. PT STATES PAIN IS 2/10. NO NEEDS ARE VERBALIZED AT THIS TIME. WILL CONTINUE TO MONITOR. SIDE RAILS ARE UP X 2. BED IS IN LOWEST POSITION. BOX ALARM IS ON FOR SAFETY. CALL LIGHT IS WITHIN REACH.
[2016-09-07 21:00] VITALS: BP 128/67
--- NOTE | 2016-09-07 22:56 | NUR ---
SHIFT ASSESSMENT COMPLETED. NIGHT MEDS GIVEN WITH NO PROBLEMS. PT RECIEVED 6 UNITS INSULIN PER SLIDING SCALE FOR ZTHC=[id number]. NO NEEDS ARE VOICED. WILL MONITOR. SIDE RAILS X 2. BED LOW. BOX ALARM ON. CALL LIGHT IN REACH.
[2016-09-08 01:00] VITALS: BP 122/68
[2016-09-08 05:00] VITALS: BP 132/72
[2016-09-08 06:27] LABS: BASOPHILS 0 % (0.0-2.0); EOSINOPHILS 0 % (0-7); HEMATOCRIT 39.5 % (36.0-48.0); HEMOGLOBIN 12.7 g/dL (12-16); IMMATURE GRANULOCYTES 0.3 % (0-5); LYMPHOCYTES 1.8 % (15-50); MCH 29.5 pg (26.0-34.0); MCHC 32.2 g/dL (31.0-37.0); MCV 91.6 fL (80.0-100.0); MONOCYTES 2.8 % (2-11); NEUTROPHILS 95.1 % (40-80); PLATELET COUNT 160 10x3/uL (130-400); RBC 4.31 10x6/uL (4.00-5.40); RDW 14.8 % (11.5-14.5); WBC 13.6 10x3/uL (4.8-10.8)
[2016-09-08 06:57] LABS: ALBUMIN 2.5 g/dL (3.4-5.0); BILIRUBIN - TOTAL 0.5 mg/dL (0.2-1.3); CARBON DIOXIDE 38.5 mmol/L (21.0-32.0); CREATININE - SERUM 1.1 mg/dL (0.6-1.3); PROTEIN - SERUM 6.2 g/dL (6.4-8.2)
[2016-09-08 07:00] LABS: ANION GAP 7.6 mmol/L (8-16); POTASSIUM - SERUM 3.1 mmol/L (3.5-5.1)
--- NOTE | 2016-09-08 07:15 | NUR ---
REPORT RECEIVED FROM DIGITAL ARTIST NURSE. CALL LIGHT IN REACH.
--- NOTE | 2016-09-08 09:15 | NUR ---
ASSESSMENT COMPLETED. CALL LIGHT IN REACH. WILL CONTINUE WITH PLAN OF CARE.
[2016-09-08 09:47] VITALS: BP 140/69
--- NOTE | 2016-09-08 11:59 | NUR ---
AM MEDS ADMINISTERED. CALL LIGHT IN REACH. FEEDING INCREASED TO 40 CC/HR
--- NOTE | 2016-09-08 13:43 | NUR ---
QUIET IN ROOM AT PRESENT DENIES ANY NEEDS AT THIS TIME RESP EVEN AND UNLABORED AT PRESENT.
--- NOTE | 2016-09-08 14:23 | NUR ---
PT REMAINS DIFFICULT TO UNDERSTAND. ASKED PT IF SHE FELT LIKE SITTING UP IN CHAIR AND SHE WAS AGREEABLE TO DO SO, HOWEVER, AFTER GETTING PAD PLACED IN CHAIR, PT DECIDED SHE DID NOT WANT TO SIT UP; PT WAS ABLE TO AMB TO RESTROOM WITH MIN ASSIST BUT POOR SAFETY AWARENESS NOTED, SHE WAS NOT AWARE OF TUBES THAT COULD HAVE EASILY BE PULLED OUT, SHE BEGAN TO GET UP WITHOUT ASSIST; EDUCATED PT ON SAFETY AWARENESS
[2016-09-08 14:31] VITALS: BP 145/65
--- NOTE | 2016-09-08 14:36 | NUR ---
MORPHINE WITH AFTERNOON MEDS ADMINISTERED PER PEG. BREATHING TREATMENT GOING AT THIS TIME.
--- NOTE | 2016-09-08 15:14 | NUR ---
VANCOMYCIN IVPB. CALL LIGHT IN REACH.
[2016-09-08 15:57] VITALS: BP 166/81
--- NOTE | 2016-09-08 16:32 | NUR ---
RESTING WITH EYES CLOSED. RESP EVEN AND UNLABROED. CALL LIGHT IN REACH.
--- NOTE | 2016-09-08 18:18 | NUR ---
NO CHANGES IN INITIAL ASSESSMENT. CALL LIGHT IN REACH. ALARM ON. WILL CONTINUE WITH PLAN OF CARE.
[2016-09-08 21:00] VITALS: BP 144/75
--- NOTE | 2016-09-08 22:40 | NUR ---
PATIENT RESTING IN BED. NASAL CANULA IN PLACE. NO SIGNS OF DISTRESS NOTED AT THIS TIME. ASSESSMENT COMPLETED. SCHEDULED MEDS GIVEN. DENIES ANY NEEDS AT THIS TIME. BED LOW. CALL LIGHT IN REACH
[2016-09-09 01:00] VITALS: BP 133/66
--- NOTE | 2016-09-09 01:59 | NUR ---
PATIENT RESTING IN BED WITH BIPAP ON. BED IN LOWEST POSITION AND CALL LIGHT WITHIN REACH.
[2016-09-09 05:00] VITALS: BP 141/60
[2016-09-09 06:33] LABS: BASOPHILS 0.1 % (0.0-2.0); EOSINOPHILS 0 % (0-7); HEMATOCRIT 40.6 % (36.0-48.0); IMMATURE GRANULOCYTES 0.5 % (0-5); LYMPHOCYTES 1.9 % (15-50); MCH 29.6 pg (26.0-34.0); MCV 92.5 fL (80.0-100.0); MEAN PLATELET VOLUME 10.3 fL (7.4-10.4); MONOCYTES 3.3 % (2-11); NEUTROPHILS 94.2 % (40-80); PLATELET COUNT 154 10x3/uL (130-400); RBC 4.39 10x6/uL (4.00-5.40); RDW 14.7 % (11.5-14.5); WBC 12.3 10x3/uL (4.8-10.8)
[2016-09-09 06:54] LABS: ALBUMIN 2.3 g/dL (3.4-5.0); ANION GAP 8.4 mmol/L (8-16); BILIRUBIN - TOTAL 0.4 mg/dL (0.2-1.3); CALCIUM 8.5 mg/dL (8.5-10.1); CARBON DIOXIDE 37.8 mmol/L (21.0-32.0); CREATININE - SERUM 1.1 mg/dL (0.6-1.3); POTASSIUM - SERUM 3.2 mmol/L (3.5-5.1)
--- NOTE | 2016-09-09 09:00 | NUR ---
ASSESSMENT PER FLOW SHEET.PT WITHOUT DISTRESS.CALL LIGHT IN REACH.BOX ALARM IN PLACE
--- NOTE | 2016-09-09 10:44 | NUR ---
NUTRITION MONITORING & EVAL CHART REVIEWED, PT VISIT. PUREED DIET WITH HONEY THICK LIQUIDS STARTED. TOLERATING JEVITY 1.2 @ GOAL RATE 60 CC/HR. RD FOLLOWING
[2016-09-09 11:04] VITALS: BP 149/76
[2016-09-09 11:48] VITALS: BP 170/79
--- NOTE | 2016-09-09 12:40 | NUR ---
PAIN MEDS ORDERED PER SEP.
[2016-09-09 16:35] VITALS: BP 162/79
--- NOTE | 2016-09-09 18:47 | NUR ---
REMAINS WITHOUT NEEDS,WITHOUT CHANGE.CONT PLAN OF CARE
--- NOTE | 2016-09-09 19:00 | NUR ---
BEDSIDE REPORT RECEIVED AND CARE OF PT ASSUMED. PT LYING IN SEMI KRISHNA'S POSITION WATCHING TV. IV IN LEFT PORT PATENT WITH NS INFUSING AT KVO. O2 IN USE AT 4L VIA NC AND SPO2 93% AT THIS ASSESSMENT. PEG TUBE PATENT WITH JEVITY 1.2 INFUSING AT 30 ML/HR VIA FEEDING PUMP. WILL MONITOR CLOSELY FOR NEEDS. CALL LIGHT WITHIN REACH. BED ALARM IN USE.
[2016-09-09 20:48] VITALS: BP 187/76
--- NOTE | 2016-09-09 21:11 | NUR ---
HS MEDICATIONS GIVEN. FSBS 288 AT THIS CHECK REQUIRING COVERAGE WITH 10 UNITS INSULIN PER SLIDING SCALE. HS SNACK OF PUDDING AND PRUNE JUICE GIVEN, PT REQUESTING SOMETHING FOR CONSTIPATION. WILL CONTINUE TO MONITOR CLOSELY FOR NEEDS. CALL LIGHT WITHIN REACH. BED ALARM IN USE.
--- NOTE | 2016-09-10 00:05 | NUR ---
BIPAP PLACED ON PT BY RESPIRATORY.
[2016-09-10 00:18] VITALS: BP 198/90
--- NOTE | 2016-09-10 01:51 | NUR ---
PT REQUESTING TO HAVE BIPAP TAKEN OFF. REPLACED WITH 4L VIA NC PER ORDER.
--- NOTE | 2016-09-10 03:15 | NUR ---
CHANGED ALL FEEDING TUBING AND BAGS. FILLED WITH JEVITY 1.2 PER ORDER.
[2016-09-10 04:27] VITALS: BP 150/77
[2016-09-10 06:30] LABS: BASOPHILS 0.3 % (0.0-2.0); EOSINOPHILS 0 % (0-7); HEMATOCRIT 40.2 % (36.0-48.0); HEMOGLOBIN 13.2 g/dL (12-16); IMMATURE GRANULOCYTES 1.8 % (0-5); LYMPHOCYTES 4.1 % (15-50); MCH 29.8 pg (26.0-34.0); MCHC 32.8 g/dL (31.0-37.0); MCV 90.7 fL (80.0-100.0); MEAN PLATELET VOLUME 9.9 fL (7.4-10.4); MONOCYTES 3.8 % (2-11); PLATELET COUNT 130 10x3/uL (130-400); RBC 4.43 10x6/uL (4.00-5.40); RDW 14.7 % (11.5-14.5)
[2016-09-10 06:38] LABS: WBC 7.6 10x3/uL (4.8-10.8)
[2016-09-10 06:42] LABS: ALBUMIN 2.4 g/dL (3.4-5.0); BILIRUBIN - TOTAL 0.54 mg/dL (0.2-1.3); CREATININE - SERUM 0.9 mg/dL (0.6-1.3); POTASSIUM - SERUM 3.7 mmol/L (3.5-5.1); PROTEIN - SERUM 6.3 g/dL (6.4-8.2)
[2016-09-10 06:44] LABS: ANION GAP 6.4 mmol/L (8-16); CARBON DIOXIDE 40.3 mmol/L (21.0-32.0)
--- NOTE | 2016-09-10 07:00 | NUR ---
PATIENT RECEIVED IN MID KRISHNA POSITION RESTING WITH EYES CLOSED. RESIPRATIONS EVEN AND UNLABORED SIDE RAILS UP X2. BED IN LOW POSITION. CALL LIGHT IN REACH. DONAVAN ALARM ON.
[2016-09-10 08:07] VITALS: BP 138/75
--- NOTE | 2016-09-10 09:30 | NUR ---
PATIENT ALERT IN BED. NO SIGNS OF DISTRESS NOTED. SCHEDULED MEDICATION ADMINISTERED. SIDE RAILS UP X2. BED IN LOW POSITION. CALL LIGHT IN REACH.
[2016-09-10 11:56] VITALS: BP 132/74
--- NOTE | 2016-09-10 12:15 | NUR ---
ACCU CHECK 293. INSULIN PER SLIDING SCALE. WELL TOLERATED. SIDE RAILS UP X2. BED IN LOW POSITION. CALL LIGHT IN REACH.
--- NOTE | 2016-09-10 14:00 | NUR ---
SITTING UP ON SIDE OF BED ALERT. NO SIGNS OF DISTRESS NOTED. EFRAIN PT AT BEDSIDE. CALL LIGHT IN REACH. BED IN LOW POSITION.
[2016-09-10 15:37] VITALS: BP 136/72
--- NOTE | 2016-09-10 17:52 | NUR ---
SITTING UP ON SIDE OF BED ALERT. NO SIGNS OF DISTRESS NOTED. SCHEDULED MEDICATION ADMINISTERED. SIDE RAILS UP X2. BED IN LOW POSITION. CALL LIGHT IN REACH.
--- NOTE | 2016-09-10 19:30 | NUR ---
PT LYING IN BED RECIEVING RESP TX, DANIEL WELL, ASSESSMENT COMPLETED, NO ACUTE DISTRESS NOTED, FALL AND CONTACT PRECAUTIONS IN PLACE, CL IN REACH, WILL MONITOR
[2016-09-10 20:00] VITALS: BP 164/76
--- NOTE | 2016-09-10 22:10 | NUR ---
MEDS GIVEN PER MAR, DANIEL WELL, NO DISTRESS NOTED, ISOLATION AND FALL PRECAUTIONS IN PLACE, CL IN REACH
--- NOTE | 2016-09-10 23:37 | NUR ---
BIPAP REMOVED PER PATIENT REQUEST. DOES NOT WANT TO WEAR OUR BIPAP, WILL HAVE SON BRING HER HOME CPAP. HOPEFULLY IT WILL BE HERE TOMORROW, IF NOT SHE DOES NOT WANT TO USE OURS. PLACED BACK ON O2 NC
--- NOTE | 2016-09-10 23:40 | NUR ---
RESTING WITH EYES CLOSED, RESP WITH EASE, NO DISTRESS NOTED, CL IN REACH
[2016-09-11] VITALS: BP 133/64
[2016-09-11 04:00] VITALS: BP 128/63
[2016-09-11 05:42] LABS: BASOPHILS 0.1 % (0.0-2.0); EOSINOPHILS 0.2 % (0-7); HEMATOCRIT 39.6 % (36.0-48.0); HEMOGLOBIN 13.3 g/dL (12-16); IMMATURE GRANULOCYTES 1.3 % (0-5); LYMPHOCYTES 9.1 % (15-50); MCH 29.8 pg (26.0-34.0); MCHC 33.6 g/dL (31.0-37.0); MEAN PLATELET VOLUME 9.9 fL (7.4-10.4); MONOCYTES 4.4 % (2-11); NEUTROPHILS 84.9 % (40-80); PLATELET COUNT 115 10x3/uL (130-400); RBC 4.47 10x6/uL (4.00-5.40); RDW 14.4 % (11.5-14.5)
[2016-09-11 05:56] LABS: MCV 88.6 fL (80.0-100.0); WBC 10.7 10x3/uL (4.8-10.8)
[2016-09-11 06:06] LABS: ALBUMIN 2.5 g/dL (3.4-5.0); BILIRUBIN - TOTAL 0.49 mg/dL (0.2-1.3); CALCIUM 8.7 mg/dL (8.5-10.1); CREATININE - SERUM 0.8 mg/dL (0.6-1.3); POTASSIUM - SERUM 3.3 mmol/L (3.5-5.1); PROTEIN - SERUM 5.8 g/dL (6.4-8.2)
--- NOTE | 2016-09-11 07:15 | NUR ---
UP TO BR WITH MIN ASSIST OF ONE. NO BM AT THIS TIME HAD SOME FLATUS.
[2016-09-11 07:22] LABS: ANION GAP 5.3 mmol/L (8-16)
--- NOTE | 2016-09-11 07:55 | NUR ---
PLEASE DO PCXR DO TO PT BEING IN ISOLATION AND ON A FEEDING TUBE
[2016-09-11 08:55] VITALS: BP 136/60
--- NOTE | 2016-09-11 08:59 | NUR ---
AWAKE AND ALERT. ORIENTED X3. NO C/O AT THIS TIME LUNGS ARE CLEAR BILATERALLY BUT STILL SLIGHTLY DIMINISHED. OCCASSIONAL DRY COUGH NOTED. SKIN IS INTACT WITHOUT REDNESS. LEFT PORT IS PATENT WITHOUT REDNESS AT INSERTION SITE. O2 @4L NC. REPORTS THROAT SORE LIKE YEAST BUT NONE SEEN. WILL LET MD KNOW. SORTO PATENT WITH CLEAR YELLOW URINE. ATE MOST OF BREAKFAST. DENIES NEEDS.
[2016-09-11] MEDS ORDERED: BENZONATATE200 MG PO (10:06)
[2016-09-11] MEDS ORDERED: GUAIFENESI100 MG/5 M NG (10:06)
[2016-09-11] MEDS ORDERED: VIBRAMYCIN 100100 MG PEG (10:09)
--- NOTE | 2016-09-11 10:56 | NUR ---
TOOK ALL OF AM MEDS WITHOUT DIFFICULTY. SOME VIA PEG AND SOME PO IN PUDDING. HOB UP 30 DEGREES.
--- NOTE | 2016-09-11 12:00 | NUR ---
FSBS 376. GIVEN 16 UNITS HUMALOG SUBQ PER SS. LUNCH SERVED IN ROOM.
--- NOTE | 2016-09-11 13:47 | NUR ---
Nutrition Follow Up: Spoke with nursing who reported that pt is tolerating current TF rate; TF not at goal rate at this time. Pt is eating 56% meal avg on a diabetic pureed with honey thick liquids. I<O. Wt stable. +BM 09/10/16. Labs noted - Glucose elevated. Meds noted including Solu-Medrol, Humalog, Lasix. Pt with fair po intake and tolerating TF. Rec continue current diet per [employer] recs. Rec continue increasing TF rate 10 ml every 6-8 hours to goal rate of 60 ml/hr. RD following.
--- NOTE | 2016-09-11 14:00 | NUR ---
UP TO BR PER SELF. HAD LARGE BM AND SMALL AMOUNT OF URINE. SORTO D/C WITH TIP INTACT. PATIENT TOLERATEDE WITHOUT DIFFICULTY.
--- NOTE | 2016-09-11 14:52 | NUR ---
UP TO BR WITH SBA. VOIDED CLEAR YELLOW URINE WITHOUT DIFFICULTY.
--- NOTE | 2016-09-11 18:03 | NUR ---
DISCHARGED TO HOME WITH FAMILY AMBULATORY. DISCHARGE INSTRUCTIONS GIVEN BOTH VERBALLY AND WRITTEN. ALL QUESTIONS ANSWERED. PATIENT AND FAMILY VERBALIZED UNDERSTANDING OF SAME. NEEDED PRESCRIPTIONS EFAXED TO PHARMACY OF CHOICE. LEFT PORT HEPRANIZED AND DEACCESSED.
--- NOTE | 2016-09-14 10:08 | EC ---
PATIENT:CODY SCHAEFER DATE OF SERVICE: 09/06/16 SEX: F MEDICAL RECORD: [id number] DATE OF : 42 LOCATION:[facility] AGE OF PATIENT: 76 ADMISSION DATE: 09/06/16 REFERRING PHYSICIAN: INTERPRETING PHYSICIAN: ELIAZAR BERGERON MD ECHOCARDIOGRAM REPORT ECHO CHARGES 4 ECHO COMPLETE CLINICAL DIAGNOSIS: CHF ECHOCARDIOGRAPHIC MEASUREMENTS (adult normal given) AC root (d.<3.7cm) 3.1 LV Septum d (<1.2 cm> 1.8 Valve Excursion 1.8 LV Septum (systole) 2.2 Left Atria (s.<4.0cm> 2.7 LVPW d(<1.2cm) 1.5 RV (d.<2.3cm) 2.5 LVPW (sytole) 2.2 LV diastole(<5.6CM) 4.6 MV E-F(>70mm/sec) LV systole 2.3 LVOT Diameter 1.9 MV exc.(>10mm) Est.ejection fraction (50-75%) Pericardial Effusion N DOPPLER: LVIT A 147 E 85.0 LA RVSP 48.0 LVOT 158 AOP1/2T Asc. Ao 225 RVOT 110 RA PA 150 AV Gradient Peak 20.2 AV Mean 11.0 AV Area 1.5 MV Gradient Peak 6.8 MV Mean 3.1 MV Area COMMENTS: Loom Setter Fourdrinier: Anni URBINA Home Planning Consultant Salesperson:Telma Abbott TAPE# PACS DATE OF SERVICE: 09/07/2016 FINDINGS: 1. Left ventricular chamber size is within normal limits. Left ventricular systolic function is normal. Overall ejection fraction estimated at 60%. 2. Left atrium, right atrium and right ventricular chamber sizes are within normal limits. 3. Valvular structures have normal structure and motion. There is no evidence of aortic stenosis. 4. Doppler interrogation only reveals mild tricuspid regurgitation. No other ECHOCARDIOGRAM REPORT [id number] CODY SCHAEFER valvular insufficiency or stenosis. Pulmonary systolic pressure is mildly elevated estimated at 48 mmHg. 5. No evidence of pericardial effusion or left ventricular thrombus. TRANSINT:[id number] Voice Confirmation ID: [id number] DOCUMENT ID: [id number] ELIAZAR BERGERON MD at 1008 CC: [id number] DICTATION DATE: 09/08/16 0756 EXCEL ANALYST: 09/08/16 0900 DIS IN 09/11/16 [place] [id number] [place] [id number]
== END 2016-09-11 18:05 | disposition home health service (06) | DRG 291 ==
LOC: D.MS → D.ER 13:03 → D.MS 14:32
PROVIDERS: Emergency Medicine; Family Medicine Adult Medicine; Internal Medicine Pulmonary Disease; ADMIT Emergency Medicine
DX: I11.0 Hypertensive heart disease with heart failure (principal); J96.22 Acute and chronic respiratory failure with hypercapnia; J96.21 Acute and chronic respiratory failure with hypoxia; J18.1 Lobar pneumonia, unspecified organism; G93.41 Metabolic encephalopathy; J44.0 Chronic obstructive pulmonary disease with (acute) lower respiratory infection; J44.1 Chronic obstructive pulmonary disease with (acute) exacerbation; I50.33 Acute on chronic diastolic (congestive) heart failure; G20 Parkinson's disease; K58.9 Irritable bowel syndrome, unspecified; K21.9 Gastro-esophageal reflux disease without esophagitis; I34.0 Nonrheumatic mitral (valve) insufficiency; Z85.42 Personal history of malignant neoplasm of other parts of uterus; Z99.81 Dependence on supplemental oxygen; M79.7 Fibromyalgia; G47.33 Obstructive sleep apnea (adult) (pediatric); I25.10 Atherosclerotic heart disease of native coronary artery without angina pectoris

== ENCOUNTER 2016-09-12 13:16 | Emergency (ER) | payer MEDICARE, OTHER, MEDICAID ==
[2016-09-07 13:19] VITALS: BMI 32.6
[~2016-09-12 13:16] MED LIST changes: +BENZONATATE200 MG PO; +GUAIFENESI100 MG/5 M NG; +VIBRAMYCIN 100100 MG PEG
== END 2016-09-12 17:44 | disposition home or self-care (01) ==
LOC: D.ER 13:16
DX: J44.1 Chronic obstructive pulmonary disease with (acute) exacerbation (principal); R00.0 Tachycardia, unspecified

== ENCOUNTER → 2016-12-30 17:40 | Outpatient (CLI) | payer MEDICARE, OTHER, MEDICAID ==
[2016-09-07 13:19] VITALS: BMI 32.6
[2016-12-30 19:09] LABS: APPEARANCE HAZY (CLEAR); BILIRUBIN NEGATIVE (NEGATIVE); COLOR YELLOW (YELLOW); GLUCOSE NEGATIVE (NEGATIVE); KETONE NEGATIVE (NEGATIVE); LEUKOCYTE ESTERASE 1+ (NEGATIVE); NITRITE NEGATIVE (NEGATIVE); PROTEIN NEGATIVE (NEGATIVE); UROBILINOGEN NORMAL (NORMAL)
[2016-12-30 19:10] LABS: BACTERIA MANY /hpf (NONE SEEN); EPITHELIAL CELLS 0-5 /hpf (0-5); RED CELLS - URINE OCC /hpf (0-5); WHITE CELLS - URINE >50 /hpf (0-5)
== END | disposition home or self-care (01) ==
LOC: D.LABREF 17:40
PROVIDERS: Family Medicine
DX: G20 Parkinson's disease (principal); J18.9 Pneumonia, unspecified organism

== ENCOUNTER 2017-03-24 12:39 | Emergency (ER) | payer MEDICARE, OTHER, MEDICAID ==
[2016-09-07 13:19] VITALS: BMI 32.6
[2017-03-24 14:18] LABS: APPEARANCE HAZY (CLEAR); BILIRUBIN NEGATIVE (NEGATIVE); COLOR YELLOW (YELLOW); GLUCOSE NEGATIVE (NEGATIVE); KETONE NEGATIVE (NEGATIVE); LEUKOCYTE ESTERASE TRACE (NEGATIVE); NITRITE NEGATIVE (NEGATIVE); PROTEIN NEGATIVE (NEGATIVE); UROBILINOGEN NORMAL (NORMAL)
[2017-03-24 14:20] LABS: BACTERIA MANY /hpf (NONE SEEN); EPITHELIAL CELLS 0-5 /hpf (0-5); MUCUS <1+ /lpf (NONE SEEN); RED CELLS - URINE RARE /hpf (0-5)
[2017-03-24 14:25] LABS: BASOPHILS 0.2 % (0-2); EOSINOPHILS 1.2 % (0-7); HEMATOCRIT 36.1 % (36.0-48.0); HEMOGLOBIN 12.3 g/dL (12-16); IMMATURE GRANULOCYTES 0.4 % (0-5); LYMPHOCYTES 21.6 % (15-50); MCHC 34.1 g/dL (31.0-37.0); MCV 90.9 fL (80.0-100.0); MEAN PLATELET VOLUME 9.9 fL (7.4-10.4); MONOCYTES 5.5 % (2-11); NEUTROPHILS 71.1 % (40-80); PLATELET COUNT 164 10x3/uL (130-400); RBC 3.97 10x6/uL (4.00-5.40); RDW 15.7 % (11.5-14.5); WBC 9.5 10x3/uL (4.8-10.8)
[2017-03-24 14:39] LABS: ALBUMIN 3.1 g/dL (3.4-5.0); ALKALINE PHOSPHATASE 140 U/L (46-116); ALT (SGPT) 8 U/L (10-68); BILIRUBIN - TOTAL 0.59 mg/dL (0.2-1.3); CALC OSMOLALITY 279 mosm/kg (275-300); CALCIUM 8.9 mg/dL (8.5-10.1); CARBON DIOXIDE 32.2 mmol/L (21.0-32.0); CHLORIDE - SERUM 102 mmol/L (98-107); CREATININE - SERUM 0.8 mg/dL (0.6-1.3); GLUCOSE 94 mg/dL (74-106); PROTEIN - SERUM 6.6 g/dL (6.4-8.2); SODIUM 140 mmol/L (136-145); UREA NITROGEN 16 mg/dL (7-18); eGFR NON AFRICAN AMERICAN 74 mL/min (90-120)
[2017-03-24 14:47] LABS: PRO BNP 266 pg/mL (0-450)
[2017-03-24 14:50] LABS: TROPONIN-I < 0.017 ng/mL (0.000-0.060)
== END 2017-03-24 16:02 | disposition home or self-care (01) ==
LOC: D.ER 12:39
PROVIDERS: Emergency Medicine
DX: J44.9 Chronic obstructive pulmonary disease, unspecified (principal); F17.200 Nicotine dependence, unspecified, uncomplicated; R09.89 Other specified symptoms and signs involving the circulatory and respiratory systems; R06.02 Shortness of breath; R00.1 Bradycardia, unspecified

== ENCOUNTER 2017-10-24 14:43 | Inpatient (IN) | payer MEDICARE, OTHER, MEDICAID ==
[~2017-10-24] VITALS: Ht 162.6 cm; Wt 69.5 kg
--- NOTE | ~2017-10-24 | CN ---
PATIENT NAME:CODY SCHAEFER MEDICAL RECORD: [id number] : 42 LOCATION:D. D.2104 ADMIT DATE: 10/24/17 ACCOUNT: [id number] CONSULTING PHYSICIAN: YOSELIN MARTIN MD REFERRING PHYSICIAN: DAVIE VERDIN MD DATE OF CONSULTATION: 10/29/2017 IDENTIFYING DATA: The patient is 77 years old and she is admitted to the hospital secondary to a partial bowel obstruction. CHIEF COMPLAINT: None. HISTORY OF PRESENT ILLNESS: The patient unfortunately was just acutely diagnosed with pancreatic cancer that is advanced. In addition to this, she has a long medical history that is complicated and severe. I have been asked to see her to determine competency. The patient is very cooperative. She gives me a history that I think is reliable and she is slow to process information, but if given a few moment she is able to answer my questions adequately. She denies any psychotic symptoms. She denies that she would like to hurt herself or anyone else. She tells me that she wishes she could get better, but she is realistic and understands that she is not going to. MENTAL STATUS EXAMINATION: The patient is awake, alert and oriented to person, place, time and situation. Her mood is depressed. Her affect is constricted. Thought processes are circumstantial. Memory, concentration, and abstraction abilities are mildly impaired and she denies any intent to harm herself or others as well as psychotic symptoms. ASSESSMENT: Adjustment disorder with mixed emotional features. PLAN: The patient at this time is competent to make reasonable informed consent decisions regarding her person or state. She is oriented fully. She understands the basic factors involved in her care and decision making regarding it. She says she has a pancreatic cancer and that she has been advised she cannot take chemotherapy because of her overall general medical status. She says that her wishes were different, but she understands the reality of the situation and just wishes to go home and spend what time she has left with her family and be comfortable. TRANSINT:[id number] Voice Confirmation ID: [id number] DOCUMENT ID: [id number] YOSELIN MARTIN MD at 1936 CC: [id number] DICTATION DATE: 10/29/17 1429 MILLER HELPER: 10/29/17 1445 ADM IN [facility] [address] [place] [address]
[2017-10-24 15:19] LABS: BASOPHILS 0.2 % (0-2); EOSINOPHILS 0.8 % (0-7); HEMATOCRIT 44.6 % (36.0-48.0); HEMOGLOBIN 15.4 g/dL (12-16); IMMATURE GRANULOCYTES 0.4 % (0-5); LYMPHOCYTES 8.7 % (15-50); MCH 31.4 pg (26.0-34.0); MCHC 34.5 g/dL (31.0-37.0); MONOCYTES 10.4 % (2-11); NEUTROPHILS 79.5 % (40-80); PLATELET COUNT 217 10x3/uL (130-400); WBC 19.3 10x3/uL (4.8-10.8)
[2017-10-24 15:44] LABS: ALBUMIN 3.4 g/dL (3.4-5.0); ANION GAP 10.9 mmol/L (8-16); BILIRUBIN - TOTAL 1.33 mg/dL (0.2-1.3); CALCIUM 9.4 mg/dL (8.5-10.1); CARBON DIOXIDE 32.5 mmol/L (21.0-32.0); CREATININE - SERUM 0.8 mg/dL (0.6-1.3); POTASSIUM - SERUM 4.4 mmol/L (3.5-5.1); PROTEIN - SERUM 6.8 g/dL (6.4-8.2)
[2017-10-24 19:53] LABS: APPEARANCE CLEAR (CLEAR); BILIRUBIN NEGATIVE (NEGATIVE); COLOR DK YELLOW (YELLOW); GLUCOSE NEGATIVE (NEGATIVE); KETONE NEGATIVE (NEGATIVE); NITRITE NEGATIVE (NEGATIVE); PH 8.5 (5.0-6.0); PROTEIN NEGATIVE (NEGATIVE); SPECIFIC GRAVITY 1.005 (1.005-1.020); UROBILINOGEN NORMAL (NORMAL)
[2017-10-24 20:06] LABS: BACTERIA FEW /hpf (NONE SEEN); EPITHELIAL CELLS 0-5 /hpf (0-5); GRANULAR CAST RARE /lpf (NONE SEEN); HYALINE CAST OCC /lpf (NONE SEEN); RED CELLS - URINE OCC /hpf (0-5); WAXY CAST RARE /lpf (NONE SEEN); WHITE CELLS - URINE 0-5 /hpf (0-5); YEAST <1+ /hpf (NONE SEEN)
[2017-10-25] VITALS (9 sets, daily range): BP systolic 114–155; BP diastolic 51–74; Ht 162.6 cm; Wt 69.5 kg
[2017-10-25] MEDS ORDERED: SINEMET CR 50-1 EACH GT (00:01)
[2017-10-25] MEDS ORDERED: ROBAXIN-750750 MG PO (00:02)
[2017-10-25] MEDS ORDERED: ULTRAM50 MG PO (00:03)
[2017-10-25] MEDS ORDERED: OMNICEF300 MG PO (00:04)
[2017-10-25] MEDS ORDERED: HYDROCODONE-APA1 TAB PO (00:06)
[2017-10-25] MEDS ORDERED: SENNA PLUS TA1 UDTAB PO (00:07)
[2017-10-25] MEDS ORDERED: BROVANA15 MCG/2 M INH (00:08)
[2017-10-25] MEDS ORDERED: LUMIGAN 0.01%2.5 ML EACH EYE (00:09)
[2017-10-25] MEDS ORDERED: CALCIUM 500 + D1 TAB PO (00:09)
[2017-10-25 04:44] LABS: BASOPHILS 0.1 % (0-2); EOSINOPHILS 1.3 % (0-7); HEMATOCRIT 42.3 % (36.0-48.0); HEMOGLOBIN 14.3 g/dL (12-16); IMMATURE GRANULOCYTES 0.2 % (0-5); LYMPHOCYTES 13.1 % (15-50); MCHC 33.8 g/dL (31.0-37.0); MCV 91.8 fL (80.0-100.0); MEAN PLATELET VOLUME 10.2 fL (7.4-10.4); MONOCYTES 12.5 % (2-11); NEUTROPHILS 72.8 % (40-80); PLATELET COUNT 213 10x3/uL (130-400); RBC 4.61 10x6/uL (4.00-5.40); RDW 14.1 % (11.5-14.5)
[2017-10-25 04:48] LABS: WBC 11.1 10x3/uL (4.8-10.8)
[2017-10-25 05:13] LABS: BILIRUBIN - TOTAL 1.1 mg/dL (0.2-1.3); CALCIUM 9.5 mg/dL (8.5-10.1); CARBON DIOXIDE 32.1 mmol/L (21.0-32.0); CREATININE - SERUM 0.9 mg/dL (0.6-1.3); MAGNESIUM - SERUM 1.8 mg/dL (1.8-2.4); PHOSPHOROUS 3.9 mg/dL (2.5-4.9); PROTEIN - SERUM 6.9 g/dL (6.4-8.2)
[2017-10-25 05:48] LABS: ANION GAP 10.7 mmol/L (8-16); POTASSIUM - SERUM 3.8 mmol/L (3.5-5.1)
[2017-10-26] VITALS: BP 132/89
[2017-10-26 05:03] LABS: BASOPHILS 0.1 % (0-2); EOSINOPHILS 0.1 % (0-7); HEMATOCRIT 43.1 % (36.0-48.0); HEMOGLOBIN 14.5 g/dL (12-16); IMMATURE GRANULOCYTES 0.2 % (0-5); LYMPHOCYTES 6.8 % (15-50); MCH 31.1 pg (26.0-34.0); MCHC 33.6 g/dL (31.0-37.0); MCV 92.5 fL (80.0-100.0); MEAN PLATELET VOLUME 9.8 fL (7.4-10.4); MONOCYTES 6.9 % (2-11); NEUTROPHILS 85.9 % (40-80); PLATELET COUNT 184 10x3/uL (130-400); RBC 4.66 10x6/uL (4.00-5.40); RDW 13.9 % (11.5-14.5); WBC 12.1 10x3/uL (4.8-10.8)
[2017-10-26 05:26] LABS: ANION GAP 16.7 mmol/L (8-16); CALCIUM 9.1 mg/dL (8.5-10.1); CARBON DIOXIDE 28.1 mmol/L (21.0-32.0); MAGNESIUM - SERUM 1.7 mg/dL (1.8-2.4); POTASSIUM - SERUM 3.8 mmol/L (3.5-5.1); PROTEIN - SERUM 7.1 g/dL (6.4-8.2)
[2017-10-26 05:28] LABS: CREATININE - SERUM 1.2 mg/dL (0.6-1.3); PHOSPHOROUS 2.6 mg/dL (2.5-4.9)
[2017-10-26 05:32] VITALS: BP 145/67
[2017-10-26 09:13] VITALS: BP 156/75
[2017-10-26 11:58] VITALS: BP 147/68
[2017-10-26 16:47] VITALS: BP 159/70
[2017-10-26 20:38] VITALS: BP 108/60
[2017-10-26] MEDS ORDERED: TRANSDERM-SCOP1.5 MG TD (21:13)
[2017-10-27 00:28] VITALS: BP 153/65
[2017-10-27 05:41] VITALS: BP 165/72
[2017-10-27 09:16] VITALS: BP 155/86
[2017-10-27 12:54] VITALS: BP 169/76
[2017-10-27 17:05] VITALS: BP 158/71
[2017-10-27 21:25] VITALS: BP 178/75
[2017-10-28 00:50] VITALS: BP 145/62
[2017-10-28 04:50] VITALS: BP 182/72
[2017-10-28 05:55] LABS: BASOPHILS 0.1 % (0-2); EOSINOPHILS 1.3 % (0-7); HEMATOCRIT 34.9 % (36.0-48.0); HEMOGLOBIN 11.9 g/dL (12-16); IMMATURE GRANULOCYTES 0.2 % (0-5); LYMPHOCYTES 14.2 % (15-50); MCH 30.7 pg (26.0-34.0); MCHC 34.1 g/dL (31.0-37.0); MCV 90.2 fL (80.0-100.0); MEAN PLATELET VOLUME 9.8 fL (7.4-10.4); MONOCYTES 9.9 % (2-11); NEUTROPHILS 74.3 % (40-80); PLATELET COUNT 143 10x3/uL (130-400); RBC 3.87 10x6/uL (4.00-5.40); RDW 14.3 % (11.5-14.5)
[2017-10-28 06:18] LABS: ALBUMIN 2.5 g/dL (3.4-5.0); ALKALINE PHOSPHATASE 144 U/L (46-116); ALT (SGPT) 13 U/L (10-68); BILIRUBIN - TOTAL 1.08 mg/dL (0.2-1.3); CALC OSMOLALITY 284 mosm/kg (275-300); CALCIUM 8.5 mg/dL (8.5-10.1); CARBON DIOXIDE 24.7 mmol/L (21.0-32.0); CHLORIDE - SERUM 107 mmol/L (98-107); CREATININE - SERUM 0.6 mg/dL (0.6-1.3); MAGNESIUM - SERUM 1.7 mg/dL (1.8-2.4); PHOSPHOROUS 2.9 mg/dL (2.5-4.9); POTASSIUM - SERUM 3.5 mmol/L (3.5-5.1); PROTEIN - SERUM 6.1 g/dL (6.4-8.2); SODIUM 144 mmol/L (136-145); UREA NITROGEN 13 mg/dL (7-18); eGFR NON AFRICAN AMERICAN > 90 mL/min (90-120)
[2017-10-28 06:22] LABS: GLUCOSE 68 mg/dL (74-106)
[2017-10-28 08:08] VITALS: BP 184/71
[2017-10-28 11:06] VITALS: BP 174/77
[2017-10-28 15:45] VITALS: BP 176/67
[2017-10-28 20:00] VITALS: BP 181/75
[2017-10-29 01:00] VITALS: BP 158/73
[2017-10-29 05:11] VITALS: BP 181/66
[2017-10-29 06:06] LABS: BASOPHILS 0.3 % (0-2); EOSINOPHILS 2.5 % (0-7); HEMATOCRIT 33.5 % (36.0-48.0); HEMOGLOBIN 11.6 g/dL (12-16); IMMATURE GRANULOCYTES 0.4 % (0-5); LYMPHOCYTES 14.4 % (15-50); MCH 30.6 pg (26.0-34.0); MCHC 34.6 g/dL (31.0-37.0); MCV 88.4 fL (80.0-100.0); MONOCYTES 8.4 % (2-11); PLATELET COUNT 122 10x3/uL (130-400); RBC 3.79 10x6/uL (4.00-5.40); WBC 7.6 10x3/uL (4.8-10.8)
[2017-10-29 06:42] LABS: ALBUMIN 2.5 g/dL (3.4-5.0); ALKALINE PHOSPHATASE 165 U/L (46-116); CALC OSMOLALITY 281 mosm/kg (275-300); CALCIUM 8.3 mg/dL (8.5-10.1); CARBON DIOXIDE 24.8 mmol/L (21.0-32.0); CHLORIDE - SERUM 108 mmol/L (98-107); GLUCOSE 95 mg/dL (74-106); MAGNESIUM - SERUM 1.6 mg/dL (1.8-2.4); POTASSIUM - SERUM 3.6 mmol/L (3.5-5.1); PROTEIN - SERUM 5.5 g/dL (6.4-8.2); SODIUM 142 mmol/L (136-145); UREA NITROGEN 11 mg/dL (7-18)
[2017-10-29 06:48] LABS: ALT (SGPT) 17 U/L (10-68); CREATININE - SERUM 0.4 mg/dL (0.6-1.3); eGFR NON AFRICAN AMERICAN > 90 mL/min (90-120)
[2017-10-29 08:16] VITALS: BP 139/60
[2017-10-29 11:56] VITALS: BP 142/75
[2017-10-29 15:48] VITALS: BP 183/81
[2017-10-29 20:00] VITALS: BP 156/73
[2017-10-30 01:00] VITALS: BP 124/52
[2017-10-30 04:30] VITALS: BP 140/66
[2017-10-30 10:05] VITALS: BP 154/66
[2017-10-30 12:22] VITALS: BP 140/68
[2017-10-30 16:58] VITALS: BP 168/80
[2017-10-30 21:00] VITALS: BP 143/78
[2017-10-31 02:30] VITALS: BP 153/79
[2017-10-31 05:00] VITALS: BP 165/77
[2017-10-31 09:07] VITALS: BP 161/71
[2017-10-31 11:37] LABS: HEMATOCRIT 39.8 % (36.0-48.0); HEMOGLOBIN 14.1 g/dL (12-16); MCHC 35.4 g/dL (31.0-37.0); MEAN PLATELET VOLUME 10.4 fL (7.4-10.4); RDW 13.5 % (11.5-14.5)
[2017-10-31 11:45] LABS: ANION GAP 14.9 mmol/L (8-16); CALCIUM 9.1 mg/dL (8.5-10.1); CARBON DIOXIDE 23.4 mmol/L (21.0-32.0); CREATININE - SERUM 0.8 mg/dL (0.6-1.3); MAGNESIUM - SERUM 1.4 mg/dL (1.8-2.4); POTASSIUM - SERUM 3.3 mmol/L (3.5-5.1)
[2017-10-31 11:49] LABS: BASOPHILS 0.1 % (0-2); EOSINOPHILS 0.2 % (0-7); IMMATURE GRANULOCYTES 0.4 % (0-5); MCH 30.7 pg (26.0-34.0); MCV 86.7 fL (80.0-100.0); MONOCYTES 0.6 % (2-11); NEUTROPHILS 91.7 % (40-80); PLATELET COUNT 123 10x3/uL (130-400); RBC 4.59 10x6/uL (4.00-5.40); WBC 12.6 10x3/uL (4.8-10.8)
[2017-10-31 12:51] VITALS: BP 213/102
[2017-10-31 16:41] VITALS: BP 108/47
[2017-10-31 20:00] VITALS: BP 116/53
[2017-11-01 01:00] VITALS: BP 156/60
[2017-11-01 04:00] VITALS: BP 140/56
[2017-11-01 05:21] LABS: BASOPHILS 0.1 % (0-2); EOSINOPHILS 0 % (0-7); HEMATOCRIT 35.4 % (36.0-48.0); HEMOGLOBIN 12.5 g/dL (12-16); IMMATURE GRANULOCYTES 0.3 % (0-5); LYMPHOCYTES 3.2 % (15-50); MCH 30.6 pg (26.0-34.0); MCHC 35.3 g/dL (31.0-37.0); MCV 86.8 fL (80.0-100.0); MEAN PLATELET VOLUME 10.8 fL (7.4-10.4); MONOCYTES 3.2 % (2-11); NEUTROPHILS 93.2 % (40-80); PLATELET COUNT 145 10x3/uL (130-400); RBC 4.08 10x6/uL (4.00-5.40); RDW 14.1 % (11.5-14.5); WBC 21.9 10x3/uL (4.8-10.8)
[2017-11-01 05:27] LABS: ANION GAP 12.9 mmol/L (8-16); CARBON DIOXIDE 27.2 mmol/L (21.0-32.0); CREATININE - SERUM 0.8 mg/dL (0.6-1.3); POTASSIUM - SERUM 3.1 mmol/L (3.5-5.1)
[2017-11-01 08:52] VITALS: BP 187/86
[2017-11-01 11:04] LABS: MAGNESIUM - SERUM 1.7 mg/dL (1.8-2.4); POTASSIUM - SERUM 3.3 mmol/L (3.5-5.1)
[2017-11-01 11:29] VITALS: BP 123/49
[2017-11-01 16:15] VITALS: BP 114/55
[2017-11-01 20:03] VITALS: BP 111/52
[2017-11-02 00:58] VITALS: BP 111/54
[2017-11-02 04:00] VITALS: BP 149/59
[2017-11-02 05:47] LABS: BASOPHILS 0 % (0-2); EOSINOPHILS 0 % (0-7); HEMATOCRIT 33.1 % (36.0-48.0); HEMOGLOBIN 11.2 g/dL (12-16); IMMATURE GRANULOCYTES 0.4 % (0-5); LYMPHOCYTES 4.1 % (15-50); MCH 30.3 pg (26.0-34.0); MCHC 33.8 g/dL (31.0-37.0); MCV 89.5 fL (80.0-100.0); MEAN PLATELET VOLUME 11.2 fL (7.4-10.4); MONOCYTES 1.5 % (2-11); PLATELET COUNT 163 10x3/uL (130-400); RDW 14.2 % (11.5-14.5); WBC 21.6 10x3/uL (4.8-10.8)
[2017-11-02 06:16] LABS: ANION GAP 14.1 mmol/L (8-16); CALCIUM 8.9 mg/dL (8.5-10.1); CARBON DIOXIDE 26.5 mmol/L (21.0-32.0); POTASSIUM - SERUM 3.6 mmol/L (3.5-5.1)
[2017-11-02 06:25] LABS: CREATININE - SERUM 1.2 mg/dL (0.6-1.3)
[2017-11-02 07:43] VITALS: BP 133/52
[2017-11-02 11:21] VITALS: BP 147/57
[2017-11-02 15:19] VITALS: BP 139/61
[2017-11-02 20:00] VITALS: BP 146/71
[2017-11-03] VITALS: BP 137/56
[2017-11-03 04:00] VITALS: BP 138/65
[2017-11-03 05:11] LABS: BASOPHILS 0 % (0-2); EOSINOPHILS 0 % (0-7); HEMATOCRIT 31.4 % (36.0-48.0); HEMOGLOBIN 10.5 g/dL (12-16); IMMATURE GRANULOCYTES 0.2 % (0-5); LYMPHOCYTES 3.3 % (15-50); MCH 29.9 pg (26.0-34.0); MCHC 33.4 g/dL (31.0-37.0); MCV 89.5 fL (80.0-100.0); MEAN PLATELET VOLUME 11.4 fL (7.4-10.4); MONOCYTES 2.8 % (2-11); NEUTROPHILS 93.7 % (40-80); PLATELET COUNT 166 10x3/uL (130-400); RBC 3.51 10x6/uL (4.00-5.40); RDW 13.8 % (11.5-14.5); WBC 16.5 10x3/uL (4.8-10.8)
[2017-11-03 05:24] LABS: ANION GAP 13.4 mmol/L (8-16); CALCIUM 8.8 mg/dL (8.5-10.1); CARBON DIOXIDE 26.3 mmol/L (21.0-32.0); POTASSIUM - SERUM 3.7 mmol/L (3.5-5.1)
[2017-11-03 05:29] LABS: CREATININE - SERUM 0.8 mg/dL (0.6-1.3)
[2017-11-03 09:10] VITALS: BP 157/66
[2017-11-03 12:00] VITALS: BP 144/71
[2017-11-03 16:37] VITALS: BP 155/76
[2017-11-03 21:08] VITALS: BP 160/72
[2017-11-04] VITALS: BP 177/74
[2017-11-04 04:00] VITALS: BP 138/68
[2017-11-04 05:52] LABS: BASOPHILS 0 % (0-2); EOSINOPHILS 0 % (0-7); HEMATOCRIT 30.7 % (36.0-48.0); HEMOGLOBIN 10.2 g/dL (12-16); IMMATURE GRANULOCYTES 0.3 % (0-5); LYMPHOCYTES 5.8 % (15-50); MCHC 33.2 g/dL (31.0-37.0); MCV 90.3 fL (80.0-100.0); MONOCYTES 4.6 % (2-11); NEUTROPHILS 89.3 % (40-80); PLATELET COUNT 169 10x3/uL (130-400); RDW 13.5 % (11.5-14.5)
[2017-11-04 06:00] LABS: WBC 6.7 10x3/uL (4.8-10.8)
[2017-11-04 06:15] LABS: ANION GAP 9.7 mmol/L (8-16); CALCIUM 8.8 mg/dL (8.5-10.1); CARBON DIOXIDE 28.2 mmol/L (21.0-32.0); CREATININE - SERUM 0.8 mg/dL (0.6-1.3); POTASSIUM - SERUM 3.9 mmol/L (3.5-5.1); VANCOMYCIN - TROUGH 11.1 ug/mL (10.0-20.0)
[2017-11-04 08:27] VITALS: BP 139/65
[2017-11-04 13:12] VITALS: BP 164/75
[2017-11-04 16:51] VITALS: BP 162/75
[2017-11-04 20:33] VITALS: BP 166/70
[2017-11-05 01:00] VITALS: BP 132/57
[2017-11-05 03:53] LABS: BASOPHILS 0 % (0-2); EOSINOPHILS 0 % (0-7); HEMATOCRIT 29.8 % (36.0-48.0); IMMATURE GRANULOCYTES 0.3 % (0-5); LYMPHOCYTES 9.9 % (15-50); MCH 30.1 pg (26.0-34.0); MCHC 33.6 g/dL (31.0-37.0); MCV 89.8 fL (80.0-100.0); MONOCYTES 10.1 % (2-11); NEUTROPHILS 79.7 % (40-80); PLATELET COUNT 176 10x3/uL (130-400); RBC 3.32 10x6/uL (4.00-5.40); RDW 13.1 % (11.5-14.5); WBC 5.8 10x3/uL (4.8-10.8)
[2017-11-05 04:00] VITALS: BP 160/73
[2017-11-05 04:11] LABS: ANION GAP 11.1 mmol/L (8-16); CALCIUM 8.7 mg/dL (8.5-10.1); CARBON DIOXIDE 26.5 mmol/L (21.0-32.0); CREATININE - SERUM 0.9 mg/dL (0.6-1.3); POTASSIUM - SERUM 3.6 mmol/L (3.5-5.1)
[2017-11-05 08:39] VITALS: BP 160/77
[2017-11-05 12:17] VITALS: BP 144/73
[2017-11-05 16:32] VITALS: BP 145/77
[2017-11-05 20:00] VITALS: BP 167/62
[2017-11-06 01:00] VITALS: BP 144/55
[2017-11-06 05:09] VITALS: BP 148/59
[2017-11-06 08:29] VITALS: BP 163/77
[2017-11-06 11:48] LABS: BASOPHILS 0.5 % (0-2); EOSINOPHILS 0.3 % (0-7); HEMATOCRIT 32.9 % (36.0-48.0); HEMOGLOBIN 11.4 g/dL (12-16); IMMATURE GRANULOCYTES 2.9 % (0-5); LYMPHOCYTES 7.1 % (15-50); MCH 29.9 pg (26.0-34.0); MCHC 34.7 g/dL (31.0-37.0); MEAN PLATELET VOLUME 10.7 fL (7.4-10.4); NEUTROPHILS 76.2 % (40-80); PLATELET COUNT 181 10x3/uL (130-400); RBC 3.81 10x6/uL (4.00-5.40); RDW 12.8 % (11.5-14.5)
[2017-11-06 11:54] VITALS: BP 169/78
[2017-11-06 11:54] LABS: MCV 86.4 fL (80.0-100.0); WBC 7.9 10x3/uL (4.8-10.8)
[2017-11-06 11:57] LABS: CALC OSMOLALITY 278 mosm/kg (275-300); CALCIUM 8.4 mg/dL (8.5-10.1); CARBON DIOXIDE 27.2 mmol/L (21.0-32.0); CHLORIDE - SERUM 105 mmol/L (98-107); CREATININE - SERUM 0.7 mg/dL (0.6-1.3); GLUCOSE 175 mg/dL (74-106); SODIUM 136 mmol/L (136-145); UREA NITROGEN 21 mg/dL (7-18); eGFR NON AFRICAN AMERICAN 86 mL/min (90-120)
[2017-11-06 12:00] LABS: POTASSIUM - SERUM 4.9 mmol/L (3.5-5.1)
[2017-11-06 15:44] VITALS: BP 166/68
[2017-11-06 20:00] VITALS: BP 153/59
[2017-11-07 01:00] VITALS: BP 167/73
[2017-11-07 04:00] VITALS: BP 158/56
[2017-11-07 04:51] LABS: CALC OSMOLALITY 282 mosm/kg (275-300); CALCIUM 8.2 mg/dL (8.5-10.1); CARBON DIOXIDE 28.9 mmol/L (21.0-32.0); CHLORIDE - SERUM 104 mmol/L (98-107); CREATININE - SERUM 0.7 mg/dL (0.6-1.3); GLUCOSE 233 mg/dL (74-106); POTASSIUM - SERUM 4.4 mmol/L (3.5-5.1); SODIUM 137 mmol/L (136-145); UREA NITROGEN 19 mg/dL (7-18); eGFR NON AFRICAN AMERICAN 86 mL/min (90-120)
[2017-11-07 06:26] LABS: BASOPHILS 0.2 % (0-2); EOSINOPHILS 0 % (0-7); HEMATOCRIT 30.9 % (36.0-48.0); HEMOGLOBIN 10.6 g/dL (12-16); IMMATURE GRANULOCYTES 1.6 % (0-5); LYMPHOCYTES 4.6 % (15-50); MCH 30.1 pg (26.0-34.0); MCHC 34.3 g/dL (31.0-37.0); MCV 87.8 fL (80.0-100.0); MEAN PLATELET VOLUME 10.8 fL (7.4-10.4); NEUTROPHILS 89.6 % (40-80); PLATELET COUNT 203 10x3/uL (130-400); RBC 3.52 10x6/uL (4.00-5.40); WBC 9.5 10x3/uL (4.8-10.8)
[2017-11-07 07:54] VITALS: BP 157/65
[2017-11-07 13:46] VITALS: BP 138/55
[2017-11-07 15:29] VITALS: BP 159/76
[2017-11-07 20:00] VITALS: BP 158/72
[2017-11-08 01:00] VITALS: BP 187/68
[2017-11-08 05:00] VITALS: BP 129/75
[2017-11-08 05:07] LABS: BASOPHILS 0.1 % (0-2); EOSINOPHILS 0 % (0-7); HEMATOCRIT 32.9 % (36.0-48.0); HEMOGLOBIN 11.1 g/dL (12-16); MCH 29.8 pg (26.0-34.0); MCHC 33.7 g/dL (31.0-37.0); MCV 88.4 fL (80.0-100.0); MEAN PLATELET VOLUME 11.1 fL (7.4-10.4); MONOCYTES 0.3 % (2-11); NEUTROPHILS 90.6 % (40-80); RBC 3.72 10x6/uL (4.00-5.40); RDW 13.3 % (11.5-14.5); WBC 9.7 10x3/uL (4.8-10.8)
[2017-11-08 05:08] LABS: PLATELET COUNT 139 10x3/uL (130-400)
[2017-11-08 05:30] LABS: CALC OSMOLALITY 286 mosm/kg (275-300); CALCIUM 8.6 mg/dL (8.5-10.1); CARBON DIOXIDE 29.6 mmol/L (21.0-32.0); CHLORIDE - SERUM 102 mmol/L (98-107); CREATININE - SERUM 0.7 mg/dL (0.6-1.3); GLUCOSE 259 mg/dL (74-106); SODIUM 138 mmol/L (136-145); UREA NITROGEN 19 mg/dL (7-18); eGFR NON AFRICAN AMERICAN 86 mL/min (90-120)
[2017-11-08 07:00] VITALS: BP 160/60
[2017-11-08 12:00] VITALS: BP 135/60
[2017-11-08 17:14] VITALS: BP 153/67
[2017-11-08 20:36] VITALS: BP 180/68
[2017-11-09] VITALS: BP 173/70
[2017-11-09 05:20] VITALS: BP 165/64
[2017-11-09 06:11] LABS: BASOPHILS 0 % (0-2); EOSINOPHILS 0 % (0-7); HEMATOCRIT 32.2 % (36.0-48.0); HEMOGLOBIN 10.8 g/dL (12-16); IMMATURE GRANULOCYTES 2.1 % (0-5); LYMPHOCYTES 6.5 % (15-50); MCH 29.7 pg (26.0-34.0); MCHC 33.5 g/dL (31.0-37.0); MCV 88.5 fL (80.0-100.0); MEAN PLATELET VOLUME 10.5 fL (7.4-10.4); MONOCYTES 2.1 % (2-11); NEUTROPHILS 89.3 % (40-80); RBC 3.64 10x6/uL (4.00-5.40); RDW 13.4 % (11.5-14.5)
[2017-11-09 06:17] LABS: PLATELET COUNT 216 10x3/uL (130-400)
[2017-11-09 06:21] LABS: CALC OSMOLALITY 285 mosm/kg (275-300); CARBON DIOXIDE 30.1 mmol/L (21.0-32.0); CHLORIDE - SERUM 100 mmol/L (98-107); CREATININE - SERUM 0.7 mg/dL (0.6-1.3); GLUCOSE 281 mg/dL (74-106); POTASSIUM - SERUM 3.9 mmol/L (3.5-5.1); SODIUM 137 mmol/L (136-145); UREA NITROGEN 19 mg/dL (7-18); eGFR NON AFRICAN AMERICAN 86 mL/min (90-120)
[2017-11-09 09:25] VITALS: BP 132/72
[2017-11-09 12:22] VITALS: BP 163/62
[2017-11-09 16:46] VITALS: BP 175/75
[2017-11-09 21:27] VITALS: BP 114/66
[2017-11-10 01:02] VITALS: BP 171/68
[2017-11-10 05:37] VITALS: BP 176/63
[2017-11-10 08:03] LABS: BASOPHILS 0.1 % (0-2); EOSINOPHILS 0 % (0-7); HEMATOCRIT 35.3 % (36.0-48.0); HEMOGLOBIN 11.9 g/dL (12-16); IMMATURE GRANULOCYTES 1.8 % (0-5); LYMPHOCYTES 3.1 % (15-50); MCH 30.3 pg (26.0-34.0); MCHC 33.7 g/dL (31.0-37.0); MCV 89.8 fL (80.0-100.0); MEAN PLATELET VOLUME 10.3 fL (7.4-10.4); MONOCYTES 5.1 % (2-11); NEUTROPHILS 89.9 % (40-80); PLATELET COUNT 237 10x3/uL (130-400); RBC 3.93 10x6/uL (4.00-5.40); RDW 13.4 % (11.5-14.5); WBC 11.1 10x3/uL (4.8-10.8)
[2017-11-10 08:24] LABS: CALC OSMOLALITY 281 mosm/kg (275-300); CALCIUM 8.7 mg/dL (8.5-10.1); CARBON DIOXIDE 32.4 mmol/L (21.0-32.0); CHLORIDE - SERUM 101 mmol/L (98-107); CREATININE - SERUM 0.7 mg/dL (0.6-1.3); POTASSIUM - SERUM 3.8 mmol/L (3.5-5.1); SODIUM 137 mmol/L (136-145); UREA NITROGEN 18 mg/dL (7-18); eGFR NON AFRICAN AMERICAN 86 mL/min (90-120)
[2017-11-10 08:27] LABS: GLUCOSE 198 mg/dL (74-106)
[2017-11-10 09:15] VITALS: BP 176/70
[2017-11-10 14:29] VITALS: BP 102/57
[2017-11-10 16:21] VITALS: BP 143/79
[2017-11-10 21:32] VITALS: BP 191/78
[2017-11-11 01:03] VITALS: BP 125/53
[2017-11-11 05:32] LABS: BASOPHILS 0 % (0-2); EOSINOPHILS 0 % (0-7); HEMATOCRIT 33.1 % (36.0-48.0); HEMOGLOBIN 11.1 g/dL (12-16); IMMATURE GRANULOCYTES 1.3 % (0-5); LYMPHOCYTES 1.6 % (15-50); MCH 29.8 pg (26.0-34.0); MCHC 33.5 g/dL (31.0-37.0); MCV 88.7 fL (80.0-100.0); MEAN PLATELET VOLUME 9.8 fL (7.4-10.4); NEUTROPHILS 93.1 % (40-80); RBC 3.73 10x6/uL (4.00-5.40); RDW 13.6 % (11.5-14.5); WBC 10.3 10x3/uL (4.8-10.8)
[2017-11-11 05:39] LABS: PLATELET COUNT 188 10x3/uL (130-400)
[2017-11-11 05:59] LABS: CALCIUM 8.3 mg/dL (8.5-10.1); CARBON DIOXIDE 30.8 mmol/L (21.0-32.0); CHLORIDE - SERUM 99 mmol/L (98-107); CREATININE - SERUM 0.7 mg/dL (0.6-1.3); SODIUM 133 mmol/L (136-145); UREA NITROGEN 19 mg/dL (7-18); eGFR NON AFRICAN AMERICAN 86 mL/min (90-120)
[2017-11-11 06:08] LABS: CALC OSMOLALITY 277 mosm/kg (275-300); GLUCOSE 282 mg/dL (74-106); POTASSIUM - SERUM 4.4 mmol/L (3.5-5.1)
[2017-11-11 08:13] VITALS: BP 188/80
[2017-11-11 12:51] VITALS: BP 123/66
[2017-11-11 17:07] VITALS: BP 119/68
[2017-11-11 17:25] LABS: CKMB 0.2 U/L (0.0-3.6); CREATINE KINASE 19 UL (21-215)
[2017-11-11 17:26] LABS: TROPONIN-I < 0.017 ng/mL (0.000-0.060)
[2017-11-11 21:23] VITALS: BP 161/59
[2017-11-11 22:00] LABS: CKMB 0.2 U/L (0.0-3.6); CREATINE KINASE 25 UL (21-215)
[2017-11-11 22:09] LABS: TROPONIN-I < 0.017 ng/mL (0.000-0.060)
[2017-11-12 01:38] VITALS: BP 151/50
[2017-11-12 03:38] LABS: CKMB 0.8 U/L (0.0-3.6); CREATINE KINASE 20 UL (21-215); TROPONIN-I < 0.017 ng/mL (0.000-0.060)
[2017-11-12 04:53] VITALS: BP 178/75
[2017-11-12 09:09] VITALS: BP 130/70
[2017-11-12 11:53] VITALS: BP 135/81
[2017-11-12 16:50] VITALS: BP 130/76
[2017-11-12 22:57] VITALS: BP 172/75
[2017-11-13 05:58] VITALS: BP 182/83
[2017-11-13 08:33] VITALS: BP 182/72
[2017-11-13 11:58] VITALS: BP 160/64
[2017-11-13 16:44] VITALS: BP 173/69
[2017-11-13 21:57] VITALS: BP 174/72
[2017-11-14 01:43] VITALS: BP 171/79
[2017-11-14 06:12] LABS: APPEARANCE HAZY (CLEAR); BILIRUBIN NEGATIVE (NEGATIVE); COLOR YELLOW (YELLOW); GLUCOSE 250 mg/dL (NEGATIVE); KETONE NEGATIVE (NEGATIVE); NITRITE NEGATIVE (NEGATIVE); PROTEIN NEGATIVE (NEGATIVE); SPECIFIC GRAVITY 1.005 (1.005-1.020); UROBILINOGEN NORMAL (NORMAL)
[2017-11-14 06:17] VITALS: BP 143/115
[2017-11-14 06:46] LABS: BACTERIA FEW /hpf (NONE SEEN); RED CELLS - URINE RARE /hpf (0-5); TALC POWDER CRYSTALS 0-5 /hpf (NONE SEEN); YEAST >1+ WITH HYPHAE /hpf (NONE SEEN)
[2017-11-14 08:18] VITALS: BP 174/78
[2017-11-14 12:28] VITALS: BP 162/86
[2017-11-14 16:30] VITALS: BP 138/72
[2017-11-14 21:01] VITALS: BP 135/65
[2017-11-15 00:58] VITALS: BP 161/78
[2017-11-15 04:46] LABS: BASOPHILS 0 % (0-2); EOSINOPHILS 0 % (0-7); HEMATOCRIT 34.1 % (36.0-48.0); HEMOGLOBIN 11.8 g/dL (12-16); IMMATURE GRANULOCYTES 0.8 % (0-5); LYMPHOCYTES 3.9 % (15-50); MCH 30.6 pg (26.0-34.0); MCHC 34.6 g/dL (31.0-37.0); MCV 88.3 fL (80.0-100.0); MEAN PLATELET VOLUME 9.8 fL (7.4-10.4); MONOCYTES 5.7 % (2-11); NEUTROPHILS 89.6 % (40-80); PLATELET COUNT 154 10x3/uL (130-400); RBC 3.86 10x6/uL (4.00-5.40); WBC 16.6 10x3/uL (4.8-10.8)
[2017-11-15 05:18] LABS: CALC OSMOLALITY 284 mosm/kg (275-300); CALCIUM 8.4 mg/dL (8.5-10.1); CARBON DIOXIDE 31.2 mmol/L (21.0-32.0); CHLORIDE - SERUM 101 mmol/L (98-107); CREATININE - SERUM 0.5 mg/dL (0.6-1.3); POTASSIUM - SERUM 4.1 mmol/L (3.5-5.1); SODIUM 138 mmol/L (136-145); UREA NITROGEN 22 mg/dL (7-18); eGFR NON AFRICAN AMERICAN > 90 mL/min (90-120)
[2017-11-15 05:19] LABS: GLUCOSE 208 mg/dL (74-106)
[2017-11-15 06:33] VITALS: BP 182/74
[2017-11-15 09:13] VITALS: BP 140/70
[2017-11-15 12:46] VITALS: BP 159/65
[2017-11-15 16:43] VITALS: BP 177/66
[2017-11-15 20:00] VITALS: BP 191/77
[2017-11-16] VITALS: BP 168/81
[2017-11-16 04:00] VITALS: BP 185/80
[2017-11-16 06:55] LABS: BASOPHILS 0 % (0-2); EOSINOPHILS 0.1 % (0-7); HEMATOCRIT 33.9 % (36.0-48.0); HEMOGLOBIN 11.4 g/dL (12-16); IMMATURE GRANULOCYTES 0.5 % (0-5); LYMPHOCYTES 5.5 % (15-50); MCH 30.1 pg (26.0-34.0); MCHC 33.6 g/dL (31.0-37.0); MCV 89.4 fL (80.0-100.0); MEAN PLATELET VOLUME 9.4 fL (7.4-10.4); NEUTROPHILS 86.9 % (40-80); PLATELET COUNT 142 10x3/uL (130-400); RBC 3.79 10x6/uL (4.00-5.40); RDW 13.8 % (11.5-14.5); WBC 13.9 10x3/uL (4.8-10.8)
[2017-11-16 07:09] LABS: CALC OSMOLALITY 287 mosm/kg (275-300); CALCIUM 8.3 mg/dL (8.5-10.1); CARBON DIOXIDE 31.8 mmol/L (21.0-32.0); CHLORIDE - SERUM 102 mmol/L (98-107); CREATININE - SERUM 0.7 mg/dL (0.6-1.3); GLUCOSE 247 mg/dL (74-106); POTASSIUM - SERUM 4.2 mmol/L (3.5-5.1); SODIUM 138 mmol/L (136-145); UREA NITROGEN 23 mg/dL (7-18); eGFR NON AFRICAN AMERICAN 86 mL/min (90-120)
[2017-11-16 08:33] VITALS: BP 140/80
[2017-11-16 11:35] VITALS: BP 173/112
[2017-11-16 15:38] VITALS: BP 199/86
[2017-11-16 20:00] VITALS: BP 176/87
[2017-11-17 01:00] VITALS: BP 160/92
[2017-11-17 04:00] VITALS: BP 190/74
[2017-11-17 06:39] LABS: HEMATOCRIT 35.6 % (36.0-48.0); HEMOGLOBIN 12.5 g/dL (12-16); MCH 30.3 pg (26.0-34.0); MCHC 35.1 g/dL (31.0-37.0); MCV 86.4 fL (80.0-100.0); MEAN PLATELET VOLUME 9.6 fL (7.4-10.4); PLATELET COUNT 160 10x3/uL (130-400); RBC 4.12 10x6/uL (4.00-5.40); RDW 14.1 % (11.5-14.5); WBC 22.5 10x3/uL (4.8-10.8)
[2017-11-17 06:59] LABS: CALC OSMOLALITY 273 mosm/kg (275-300); CARBON DIOXIDE 30.9 mmol/L (21.0-32.0); CHLORIDE - SERUM 97 mmol/L (98-107); CREATININE - SERUM 0.6 mg/dL (0.6-1.3); POTASSIUM - SERUM 3.8 mmol/L (3.5-5.1); SODIUM 134 mmol/L (136-145); UREA NITROGEN 18 mg/dL (7-18); eGFR NON AFRICAN AMERICAN > 90 mL/min (90-120)
[2017-11-17 07:02] LABS: GLUCOSE 178 mg/dL (74-106)
[2017-11-17 07:54] LABS: LYMPHOCYTES 5 % (15-50); MONOCYTES 8 % (2-11); NEUTROPHILS 86 % (40-80); PLATELET ESTIMATE NORMAL
[2017-11-17 10:03] VITALS: BP 168/88
[2017-11-17 12:04] VITALS: BP 178/79
[2017-11-17 18:11] VITALS: BP 142/71
[2017-11-17 20:41] VITALS: BP 163/78
[2017-11-18 01:00] VITALS: BP 163/62
[2017-11-18 04:00] VITALS: BP 184/82
[2017-11-18 05:41] LABS: BASOPHILS 0 % (0-2); EOSINOPHILS 0 % (0-7); HEMATOCRIT 31.6 % (36.0-48.0); HEMOGLOBIN 11.1 g/dL (12-16); IMMATURE GRANULOCYTES 0.3 % (0-5); LYMPHOCYTES 4.8 % (15-50); MCH 30.4 pg (26.0-34.0); MCHC 35.1 g/dL (31.0-37.0); MCV 86.6 fL (80.0-100.0); MONOCYTES 5.6 % (2-11); NEUTROPHILS 89.3 % (40-80); PLATELET COUNT 154 10x3/uL (130-400); RBC 3.65 10x6/uL (4.00-5.40); WBC 17.9 10x3/uL (4.8-10.8)
[2017-11-18 05:58] LABS: CALC OSMOLALITY 285 mosm/kg (275-300); CALCIUM 8.8 mg/dL (8.5-10.1); CARBON DIOXIDE 29.8 mmol/L (21.0-32.0); CHLORIDE - SERUM 98 mmol/L (98-107); CREATININE - SERUM 0.7 mg/dL (0.6-1.3); POTASSIUM - SERUM 3.7 mmol/L (3.5-5.1); SODIUM 135 mmol/L (136-145); UREA NITROGEN 20 mg/dL (7-18); eGFR NON AFRICAN AMERICAN 86 mL/min (90-120)
[2017-11-18 06:03] LABS: GLUCOSE 330 mg/dL (74-106)
[2017-11-18 07:24] VITALS: BP 174/70
[2017-11-18 11:43] VITALS: BP 135/63
[2017-11-18 16:39] VITALS: BP 156/73
[2017-11-18 21:48] VITALS: BP 163/60
[2017-11-19 01:00] VITALS: BP 137/59
[2017-11-19 04:00] VITALS: BP 118/76
[2017-11-19 08:25] LABS: CALC OSMOLALITY 277 mosm/kg (275-300); CALCIUM 8.6 mg/dL (8.5-10.1); CARBON DIOXIDE 29.1 mmol/L (21.0-32.0); CHLORIDE - SERUM 99 mmol/L (98-107); CREATININE - SERUM 0.6 mg/dL (0.6-1.3); GLUCOSE 238 mg/dL (74-106); POTASSIUM - SERUM 4.4 mmol/L (3.5-5.1); SODIUM 134 mmol/L (136-145); UREA NITROGEN 18 mg/dL (7-18); eGFR NON AFRICAN AMERICAN > 90 mL/min (90-120)
[2017-11-19 08:36] VITALS: BP 147/72
[2017-11-19 08:39] LABS: BASOPHILS 0 % (0-2); EOSINOPHILS 0.5 % (0-7); HEMATOCRIT 31.9 % (36.0-48.0); HEMOGLOBIN 11.1 g/dL (12-16); IMMATURE GRANULOCYTES 0.4 % (0-5); LYMPHOCYTES 7.8 % (15-50); MCH 30.2 pg (26.0-34.0); MCHC 34.8 g/dL (31.0-37.0); MCV 86.9 fL (80.0-100.0); MEAN PLATELET VOLUME 10.4 fL (7.4-10.4); MONOCYTES 4.7 % (2-11); NEUTROPHILS 86.6 % (40-80); PLATELET COUNT 147 10x3/uL (130-400); RBC 3.67 10x6/uL (4.00-5.40); WBC 20.4 10x3/uL (4.8-10.8)
[2017-11-19 11:32] VITALS: BP 109/48
[2017-11-19] MEDS ORDERED: PREDNISONE10 MG PO (11:48)
[2017-11-19] MEDS ORDERED: ACETAMINOPHEN500 M1 PO (15:35)
== END 2017-11-19 18:27 | DRG 393 ==
LOC: D.ER 14:43 → D.EDHOLD 17:09 → D.M2 17:09 → D.SDCHOLD 11-18 10:28 → D.M2 11-18 10:29
PROVIDERS: Emergency Medicine; Family Medicine; Internal Medicine Nephrology
DX: K42.0 Umbilical hernia with obstruction, without gangrene (principal); G93.41 Metabolic encephalopathy; J69.0 Pneumonitis due to inhalation of food and vomit; C25.9 Malignant neoplasm of pancreas, unspecified; C78.7 Secondary malignant neoplasm of liver and intrahepatic bile duct; J96.12 Chronic respiratory failure with hypercapnia; J96.11 Chronic respiratory failure with hypoxia; M35.1 Other overlap syndromes; J44.1 Chronic obstructive pulmonary disease with (acute) exacerbation; I50.32 Chronic diastolic (congestive) heart failure; R78.81 Bacteremia; I69.391 Dysphagia following cerebral infarction; R13.10 Dysphagia, unspecified; G20 Parkinson's disease; Z66 Do not resuscitate; I25.10 Atherosclerotic heart disease of native coronary artery without angina pectoris; G47.33 Obstructive sleep apnea (adult) (pediatric); E78.5 Hyperlipidemia, unspecified; Z99.81 Dependence on supplemental oxygen; I11.0 Hypertensive heart disease with heart failure; I73.00 Raynaud's syndrome without gangrene; K21.9 Gastro-esophageal reflux disease without esophagitis; G89.29 Other chronic pain; I27.20 Pulmonary hypertension, unspecified; I08.1 Rheumatic disorders of both mitral and tricuspid valves; S61.412A Laceration without foreign body of left hand, initial encounter; W19.XXXA Unspecified fall, initial encounter; Y92.230 Patient room in hospital as the place of occurrence of the external cause; Z95.5 Presence of coronary angioplasty implant and graft; B96.20 Unspecified Escherichia coli [E. coli] as the cause of diseases classified elsewhere; F43.20 Adjustment disorder, unspecified

== ENCOUNTER 2017-11-30 15:44 | Outpatient (CLI) | payer MEDICARE, OTHER, MEDICAID ==
[~2017-11-30] VITALS: Ht 162.6 cm; Wt 70.3 kg
--- NOTE | ~2017-11-30 | HEMODYNAMI ---
PATIENT:CODY SCHAEFER MEDICAL RECORD: [id number] : 42 LOCATION:[facility] ADMISSION DATE: 11/30/17 Generatedon:11/30/201717:35 Patient name: CODY SCHAEFER Patient #: [id number] SSN: : 1940 Date of study: 11/30/2017 Page: Of Hemodynamic Procedure Report Patient Data Patient Demographics Procedure consent was obtained First Name: CODY Gender: Female Last Name: SILVANO : 1940 Patient #: [id number] Age: 77 year(s) Race: Additional ID: [id number] Contact details [address]: [address] [place] [address] [address]IVE State: [place] City: [place] Zip code: [address] Past Medical History History of disease Date Diagnosis Comments CAD Allergies Allergen Reaction Date Comments Reported Iodine 10/22/2015 Stadol 10/22/2015 Other allergy 10/22/2015 Buspar, Valium, Dilaudid, Levaquin, Lisinopril, Ativan, Compazine, Phenergan, Darvocet, Desyrel, Barbiturates, Albuterol Admission Admission Data Admission Date: 11/30/2017 Admission Time: 15:44 Procedure Procedure Types Cath Procedure Diagnostic Procedure LH LHC w/Coronaries PCI Procedure AMI/SVG/MANAGER FURNITURE PTCA or Stent AMI-BMS/JANELLE Initial Procedure Description Procedure Date Procedure Date: 11/30/2017 Procedure Start Time: 16:30 Procedure End Time: 17:14 Procedure Staff Name Function Mahesh Lee MD Performing Physician Melissa Luu RT Monitor Shameka Duenas RT Scrub Houston Traore RN Nurse Procedure Data Cath Procedure Fluoroscopy Diagnostic fluoroscopy Total fluoroscopy Time: time: 16.7 min 16.7 min Diagnostic fluoroscopy Total fluoroscopy dose: dose: 1169 mGy 1169 mGy Contrast Material Contrast Material Type Amount (ml) Isovue 300 137 Entry Location Entry Primary Successful Side Size Upsize Upsize Entry Closure Succes sful Closure Location (Fr) 1 (Fr) 2 (Fr) Remarks Device Remarks Femoral Right 6 Fr Exoseal artery Short Estimated blood loss: 5 ml Diagnostic catheters Device Type Used For End Catheter Placement MULTIPACK 3DRC 5Fr Right Coronary catheter Angiography MULTIPACK Pigtail 5 Fr LV Angiography catheter MULTIPACK JL 4.0 5Fr Left Coronary catheter Angiography DIAGNOSTIC 6Fr JR 4.0 Right Coronary catheter ([id number]) Angiography Procedure Complications No complications Procedure Medications Medication Administration Route Dosage Oxygen NC 2 l/min Lidocaine 2% added to field 20 Heparin Flush Bag added to field 2 bags (1000units/500ml NS) 0.9% NaCl I.V. 100 ml/hr Integrilin (Bolus I.V. 5.6 ml 2mg/ml) Heparin Bolus I.V. 3000 units Integrilin Drip I.V. drip 9.9 ml/hr (75mg/100ml) 0.9% NaCl I.V. bolus 250 ml Hemodynamics Rest Heart Rate: 111 (bpm) Pressure Samples Time Site Value (mmHg) Purpose Heart Use Rate(bpm) 16:33 LV 118/11,18 Snapshot 104 16:33 AO 142/80(108) Pullback 108 16:33 LV 136/20,25 Pullback 108 Gradients Valve Time Site 1 Site 2 Mean SEP/DFP Peak To Heart Use (mmHg) (sec/min) Peak Rate (mmHg) (bpm) Aortic 16:33 LV AO 0 108 136/20,25 142/80(108) Calculations Valve P-P Mean Valve Index Valve Source Name Gradient Area Flow (cm2) Aortic 0 0 Snapshots Pre Cath Intra NCS Post Cath Vital Signs Time Heart Resp SPO2 etCO2 NIBP (mmHg) Rhythm Pain Sedation Rate (ipm) (%) (mmHg) Status Level (bpm) 16:27:23 108 24 99 38.6 136/81(104) NSR w/ ST 0 (11) 10(A) Elevation , No pain 16:32:09 105 26 98 27.5 136/75(102) NSR w/ ST 0 (11) 10(A) Elevation , No pain 16:36:56 110 20 100 5.9 135/76(92) NSR w/ ST 0 (11) 10(A) Elevation , No pain 16:41:41 110 21 99 17.8 130/78(102) NSR w/ ST 0 (11) 10(A) Elevation , No pain 16:46:26 110 20 100 12.6 132/77(100) NSR w/ ST 0 (11) 10(A) Elevation , No pain 16:51:08 107 19 99 23 123/69(89) NSR w/ ST 0 (11) 10(A) Elevation , No pain 16:55:47 98 26 99 22.3 89/51(68) NSR w/ ST 0 (11) 10(A) Elevation , No pain 17:00:27 94 27 98 33.4 71/39(57) NSR w/ ST 0 (11) 10(A) Elevation , No pain 17:05:02 100 30 98 31.2 72/38(53) NSR w/ ST 0 (11) 10(A) Elevation , No pain 17:09:38 83 29 97 27.5 72/40(51) NSR w/ ST 0 (11) 10(A) Elevation , No pain Medications Time Medication Route Dose Verified Delivered Reason Notes Effectiveness by by 16:31:42 Oxygen NC 2 Mahesh Conrad used for l/min St Marshal Traore RN procedure 16:31:47 Lidocaine 2% added 20ml Mahesh Aragon for local to vial Former[facility], 1928–1983 anesthetic field MD HERNANDEZ 16:31:52 Heparin Flush added 2 Mahesh Orozcoory used for Bag to bags Former[facility], 1928–1983 procedure (1000units/500ml field MD HERNANDEZ NS) 16:32:00 0.9% NaCl I.V. 100 Mahesh Conrad Per physician ml/hr St Marshal Traore RN, MD 16:36:38 Integrilin I.V. 5.6 Mahesh Delgadoie for wasted 4.4 (Bolus 2mg/ml) ml St Marshal Traore RN antiplatelet ml of vial therapy 16:48:33 Heparin Bolus I.V. 3000 Mahesh Conrad for verifi ed units St Marshal Traore RN anticoagulation with dr MD arauz 17:00:43 0.9% NaCl I.V. 250 Mahesh Conrad For hypotension bolus ml St Marshal Traore RN, MD 17:04:51 Integrilin Drip I.V. 9.9 Mahesh Conrad for Until (75mg/100ml) drip ml/hr St Marshal Traore RN antiplatelet bottle therapy completed. Procedure Log Time Note 16:12:13 Informed consent obtained and on chart 16:12:19 Diagnostic Cath Status : Elective 16:12:50 Melissa Luu RT(R) sent for patient. Start room use. 16:12:50 Time tracking: Regular hours (M-F 7:00 - 5:00) 16:12:56 Plan of Care:Hemodynamics will remain stable., Cardiac rhythm will remain stable., Comfort level will be maintained., Respiratory function will remain adequate., Patient/ family verbilizes understanding of procedure., Procedure tolerated without complication., Recovers from procedure without complications.. 16:26:22 Patient received from ED to CCL 2 Alert and oriented. Tansferred to table in Supine position. 16:26:23 Warm blankets applied, and gavino hugger turned on for patient comfort. 16:26:24 Correct patient and procedure confirmed by team. 16:26:25 ECG and BP/O2 sat monitors applied to patient. 16:26:27 Vital chart was started 16:26:28 Baseline sample Acquired. 16:26:33 Rhythm: sinus rhythm , w/ ST elevation 16:26:35 Full Disclosure recording started 16:26:40 H&P Date Dictated: 11/30/2017 New H&P dictated by physician.. 16:26:42 Pre-procedure instructions explained to patient. 16:26:42 Pre-op teaching completed and patient verbalized understanding. 16:26:44 Family in waiting room. 16:26:47 Patient NPO since Midnight. 16:26:49 Is the patient allergic to Iodine/contrast media? No. 16:26:51 Was the patient premedicated? No 16:26:55 Is patient on blood thinner?Yes 16:26:59 ACC The patient was administered the following blood thiners within the last 24 hours: ACCPlavix 16:27:02 Patient diabetic? No. 16:27:07 Previous problem with sedation/anesthesia? No ? 16:27:09 Snore? Yes 16:27:12 Sleep apnea? No 16:27:13 Deviated septum? No 16:27:14 Opens mouth fully? Yes 16:27:15 Sticks out tongue? Yes 16:27:20 Airway obstruction? Yes COPD 16:27:25 Dentures? No ? 16:27:37 Pre procedure: right dorsailis pedis pulse 1+ Palpable, but thready & weak; easily obliterated 16:27:40 Pre procedure: left dorsailis pedis pulse 1+ Palpable, but thready & weak; easily obliterated 16:27:42 Patient pain scale 0/10 ?. 16:28:00 IV patent on arrival in left forearm with 0.9% NaCl at [facility]. 16:28:03 Lab results completed and on chart. 16:28:09 Right groin area was prepped with chlora-prep and draped in sterile fashion 16:28:10 Alarms reviewed by R. N. 16:28:11 Sharps counted by scrub and verified by R.N. 16::31 Physician arrived 16::32 --------ALL STOP TIME OUT------ 16::33 Final Timeout: patient, procedure, and site verified with staff and physician. All members of the team are in agreement. 16:29:03 Right groin site verified by team. 16:29:07 Physical assessment completed. ASA score P 2 - A patient with mild systemic disease as per Mahesh Lee MD. 16:29:16 Sedation plan: IV Moderate Sedation Medication:Versed, Fentanyl 16:29:34 Use device set Femoral Dx 16:29:49 ACIST Syringe (44225) opened to sterile field. 16:29:50 Bag Decanter (2002) opened to sterile field. 16:29:52 Medline Cath Pack ([id number]) opened to sterile field. 16:29:52 DIAGNOSTIC WIRE .035 260cm J wire (594750) opened to sterile field. 16:29:54 ACIST Hand Control (84998) opened to sterile field. 16:29:55 ACIST Manifold (89638) opened to sterile field. 16:30:00 DIAGNOSTIC Multipack 5Fr catheter set (CD4628) opened to sterile field. 16:30:01 Tegaderm 4 x 4 (1626W) opened to sterile field. 16:30:03 SHEATH Prelude 5Fr 0.035 (DCK-2V-72-035) opened to sterile field. 16:30:09 Procedure started. 16:30:19 Local anesthetic to right femoral artery with Lidocaine 2% by Mahesh Lee MD.INITIAL ACCESS ONLY 16:30:46 A 6 Fr Short sheath was inserted into the Right Femoral artery 16:31:42 Oxygen 2 l/min NC was administered by Houston Traore RN; used for procedure; 16:31:47 Lidocaine 2% 20ml vial added to field was administered by aMhesh Lee MD; for local anesthetic; 16:31:52 Heparin Flush Bag (1000units/500ml NS) 2 bags added to field was administered by Mahesh Lee MD; used for procedure; 16:32:00 0.9% NaCl 100 ml/hr I.V. was administered by Houston Traore RN; Per physician; 16:32:25 A MULTIPACK 3DRC 5Fr catheter was advanced over the wire and used for Right Coronary Angiography. 16:32:43 RCA angiography performed. 16:32:46 Injector settings: Ml/sec: 3, Volume: 6, 16:32:47 Catheter removed. 16:32:56 A MULTIPACK Pigtail 5 Fr catheter was advanced over the wire and used for LV Angiography. 16:33:40 LV hemodynamics recorded. 16:33:41 LV gram done using ALVA 16:33:43 Injector settings: Ml/sec: 5, Volume: 15, 16:33:52 EF : 40 % 16:34:28 Catheter removed. 16:34:52 WHISPER 300cm guide wire ([id number]) opened to sterile field. 16:34:53 INFLATOR Merit BasixCompak (XY1368) opened to sterile field. 16:34:54 GUIDE 6FR HS I catheter (LA6HSI) opened to sterile field. 16:35:39 A MULTIPACK JL 4.0 5Fr catheter was advanced over the wire and used for Left Coronary Angiography. 16:35:53 LCA angiography performed. 16:35:58 Injector settings: Ml/sec: 3, Volume: 6, 16:36:00 Catheter removed. 16:36:07 6 Fr HS 1 guide catheter was inserted over the wire 16:36:38 Integrilin (Bolus 2mg/ml) 5.6 ml I.V. was administered by Houston Traore RN; for antiplatelet therapy; wasted 4.4 ml of vial 16:39:16 Guide Catheter removed. unable to cannulate vessel. 16:39:39 A DIAGNOSTIC 6Fr JR 4.0 catheter ([id number]) was advanced over the wire and used for Right Coronary Angiography. 16:39:52 6 Fr J R 4 guide catheter was inserted over the wire 16:40:51 Guide Catheter removed. unable to cannulate vessel. 16:42:58 GUIDE 6FR AR 1.0 catheter (RI5OB30) opened to sterile field. 16:43:10 6 Fr AR 1 guide catheter was inserted over the wire 16:47:17 Guide Catheter removed. unable to cannulate vessel. 16:47:34 GUIDE 6FR ART 3.5 catheter ([id number]) opened to sterile field. 16:48:33 Heparin Bolus 3000 units I.V. was administered by Houston Traore RN; for anticoagulation; verified with dr arauz 16:49:25 WHISPER wire advanced. 16:51:20 Wire advanced across lesion. 16:54:34 Wire removed. 16:54:49 GUIDE 6FR 3DRC catheter (IA45IQT) opened to sterile field. 16:55:01 6 Fr 3DRC guide catheter was inserted over the wire 16:55:19 WHISPER wire advanced. 16:58:07 Inflate balloon Inflation number: 1 A EMERGE OTW 3.0 x 15 balloon ([id number]) was prepped and advanced across the Mid RCA, then inflated to 12 KALYN for 0:10 (min:sec). 16:58:43 Inflation number: 2 The EMERGE OTW 3.0 x 15 balloon ([id number]) was reinflated across the Mid RCA, to 12 KALYN for 0:30 (min:sec). 17:00:43 0.9% NaCl 250 ml I.V. bolus was administered by Houston Traore RN; For hypotension; 17:01:15 WHISPER WIRE EXCHANGED FOR CHOICE PT EXTRA SUPPORT 17:03:28 Place stent Inflation Number: 3 A INTEGRITY OTW 3.5 X 12 stent ([id number]) was prepped and advanced across the Mid RCA. The stent was deployed at 14 KALYN for 0:30 (min:sec). 17:04:37 Stent catheter was removed intact over wire. 17:04:37 Wire removed. 17:04:38 Guide catheter removed. 17:04:51 Integrilin Drip (75mg/100ml) 9.9 ml/hr I.V. drip was administered by Houston Traore RN; for antiplatelet therapy; Until bottle completed. 17:05:04 EXOSEAL 6Fr (EX600) opened to sterile field. 17:05:20 Sheath removed intact; hemostasis achieved with Exoseal to the Right Femoral artery. 17:05:23 Procedure ended.(Physican Out) 17:06:47 Fluoroscopy time 16.70 minutes. 17:06:56 Fluoroscopy dose: 1169 mGy 17:06:56 Flurop Dose total: 1169 17:12:18 Contrast amount:Isovue 300 137ml. 17:12:20 Sharps counted by scrub and verified by R.N. 17:12:21 Insertion/operative site no bleeding no hematoma. 17:12:30 Post-op/insertion site Right Femoral artery dressed using a 4 x 4 and Tegaderm. 17:12:33 Post right femoral artery:stable 17:12:35 Post Procedure Pulses reassessed and unchanged 17:12:40 Post procedure rhythm: unchanged. 17:12:42 Estimated blood loss: 5 ml 17:12:45 Post procedure instruction explained to patient.Patient verbalizes understanding. 17:12:45 Patient needs reinforcement of post procedure teaching. 17:13:20 Procedure type changed to Cath procedure, Diagnostic procedure, LHC, C w/Coronaries, PCI procedure, AMI/SVG/MANAGER FURNITURE PTCA or Stent, AMI-BMS/JANELLE Initial 17:13:21 Procedure and supply charges have been captured, reviewed, submitted and are correct. 17:13:26 Procedure Complication : No complications 17:13:28 Vital chart was stopped 17:13:29 See physician's report for complete and final results. 17:13:58 Report given to [facility]. 17:14:01 Patient transfered to [facility] with Stretcher. 17:14:04 Procedure ended. 17:14:04 Full Disclosure recording stopped 17:14:14 ACC-PCI Only Patient was given prescriptions, or instructed by Mahesh Lee MD to start/continue the following medications upon discharge: Plavix 17:14:16 End room use (Document Last) Intervention Summary Intervention Notes Time ActionType Lesion and Equipment Action# Pressure Duration Attributes Used 16:58:07 Inflate Mid RCA EMERGE OTW 1 12 00:10 balloon 3.0 x 15 balloon ([id number]) 16:58:43 Reinflate Mid RCA EMERGE OTW 2 12 00:30 balloon 3.0 x 15 balloon ([id number]) 17:03:28 Place stent Mid RCA INTEGRITY 3 14 00:30 OTW 3.5 X 12 stent ([id number]) Device Usage Item Name Manufacture Quantity Catalog Number Hospital Part Current Minimal Lot# / Charge Number Stock Stock Serial# Code ACIST Syringe Acist 1 98779 124592 815451 443223 20 (07440) Medical [employer] Inc Bag Decanter Microtek 1 2001S 702706 80431 994145 5 () Medical Inc. Medline Cath Cardinal 1 [id number] 941651 88838 881059 5 Pack Health ([id number]) DIAGNOSTIC WIRE St Shayan 1 481539 088560 518489 083878 30 .035 260cm J wire (621647) ACIST Hand Acist 1 47163 461298 644243 241388 5 Control (60283) Medical Systems Inc ACIST Manifold Acist 1 27978 109850 738581 131322 5 (44287) Medical Systems Inc DIAGNOSTIC Cardinal 1 HS8982 744555 50075 329353 30 Multipack 5Fr Health catheter set (RH3667) Tegaderm 4 x 4 3M 1 1626W 002746 033756 858827 5 (1626W) SHEATH Prelude Merit 1 YYB-8B-82-035 454377 279591 175060 5 5Fr 0.035 Medical (AXW-1W-84-035) MULTIPACK 3DRC Cardinal 1 036755 5 5Fr catheter Health MULTIPACK Cardinal 1 844270 5 Pigtail 5 Fr Health catheter WHISPER 300cm Mederos 1 [id number] 431170 754809 566618 5 guide wire Vascular ([id number]) INFLATOR Merit Merit 1 PB3984 075539 447932 343259 15 [employer] Medical (UK0603) GUIDE 6FR HS I Medtronic 1 LA6HSI 117185 19765 208251 1 catheter (LA6HSI) MULTIPACK JL Cardinal 1 932913 5 4.0 5Fr Health catheter DIAGNOSTIC 6Fr Cardinal 1 [id number] 108854 981739 438648 5 JR 4.0 catheter Health (713297M) GUIDE 6FR AR Medtronic 1 [id number] 214234 93144 549864 1 1.0 catheter ([id number]) GUIDE 6FR ART Colwich 1 [id number] 627457 852800 903874 0 3.5 catheter Your Last Chance ([id number]) GUIDE 6FR 3DRC Medtronic 1 [id number] 466112 219904 197889 1 catheter (FY01QJA) EMERGE OTW 3.0 [place]wich 1 [id number] 126380 296326 344710 5 02645672 x 15 balloon Scientific ([id number]) INTEGRITY OTW Medtronic 1 [id number] 527028 424306 9 [id number] 3.5 X 12 stent ([id number]) EXOSEAL 6Fr Cardinal 1 EX600 010584 574928 123496 10 (EX600) Health Signature Audit [place] Stage Time Signature Unsigned Intra-Procedure 11/30/2017 Shameka Duenas 5:35:25 PM RT(R) Signatures Monitor : Melissa Luu Signature : RT Date : Time : [place] [id number] [place] [address]
--- NOTE | ~2017-11-30 | HP ---
PATIENT: CODY SCHAEFER MEDICAL RECORD: [id number] ACCOUNT: [id number] LOCATION:.[facility]2124 : 41 ADMISSION DATE: 11/30/17 HISTORY AND PHYSICAL EXAMINATION HISTORY OF PRESENT ILLNESS: A 77-year-old lady with known history of coronary artery disease status post stenting of the right, is being brought to [facility] on urgent basis. She has a history of recent prolonged coronary artery disease in the past. She has a history of recent admission for obstructive pulmonary disease exacerbation as well as ileus. She is brought to [facility] on urgent basis for revascularization. PHYSICAL EXAMINATION: GENERAL: This is an elderly female, in mild distress. HEENT: Normocephalic, atraumatic. NECK: No bruits noted. HEART: Regular. LUNGS: Good air excursion. ABDOMEN: Soft, nontender. EXTREMITIES: Pulses 2+. No edema. IMPRESSION: Acute inferior myocardial infarction, known previous stenting. PLAN: We will plan for angiography and intervention based on above. TRANSINT:[id number] Voice Confirmation ID: [id number] DOCUMENT ID: [id number] ALYCIA GLEZ MD at 0829 CC: [id number] DICTATION DATE: 11/30/17 1619 MODELING INSTRUCTOR: 11/30/17 1715 [facility] [address] [place] [address]
--- NOTE | ~2017-11-30 | OP ---
PATIENT NAME: CODY SCHAEFER MEDICAL RECORD: [id number] :42 LOCATION:D.M2 D.2124 ADMISSION DATE: SURGEON: ALYCIA GLEZ MD DATE OF OPERATION: 11/30/2017 PROCEDURE: Left heart catheterization, selective coronary angiography, right femoral artery approach. CATHETERS: A 5-Maori sheath, 5/4 left and right Anne, 5/4 pig. The procedure was well tolerated and the patient returned to fonseca. Sheath removed and FemoStop was placed. FINDINGS: Left ventriculography in 30-degree ALVA view: Inferobasal hypokinesis. Overall function mildly reduced at 45% to 50%. CORONARY ANATOMY: LEFT MAIN: Left main is free of disease. LAD: Free of disease in the diagonal system. CIRCUMFLEX: Very large circumflex system, codominant, free of disease. RIGHT CORONARY ARTERY: Totally occluded. PLAN: Intervention for acute myocardial infarction momentarily. INTERVENTION: Multiple guide catheters were used. We were finally able to engage the right with a 3DRC. Wire used was a Whisper wire placed across tightly occluded right down this portion of vessel. This established CATALINO 2 flow. Predeployment balloon used was 3.0 x 15 mm Murray. Final stent was a 12 mm Integrity 3.5, up to 14 atmospheres. Final angiography showed excellent resolution of a 100% stenosis with no significant residual. CATALINO flow improved from 0 to 3. Integrilin was used during the case. Sheath was closed with FemoStop. TRANSINT:[id number] Voice Confirmation ID: [id number] DOCUMENT ID: [id number] ALYCIA GLEZ MD at 0829 CC: [id number] DICTATION DATE: 11/30/17 1716 PNEUMATIC SYSTEM CONVEYOR OPERATOR: 11/30/17 1849 [facility] [address] [place] [address]
[~2017-11-30 15:44] MED LIST changes: +ACETAMINOPHEN500 M1 PO; +CALCIUM 500 + D1 TAB PO; +SENNA PLUS TA1 UDTAB PO; +SINEMET CR 50-1 EACH GT; +TRANSDERM-SCOP1.5 MG TD
[2017-11-30 16:03] LABS: BASOPHILS 0.1 % (0-2); EOSINOPHILS 0.9 % (0-7); HEMATOCRIT 30.9 % (36.0-48.0); HEMOGLOBIN 10.6 g/dL (12-16); IMMATURE GRANULOCYTES 0.3 % (0-5); LYMPHOCYTES 5.2 % (15-50); MCH 29.5 pg (26.0-34.0); MCHC 34.3 g/dL (31.0-37.0); MCV 86.1 fL (80.0-100.0); MEAN PLATELET VOLUME 9.3 fL (7.4-10.4); MONOCYTES 7.9 % (2-11); NEUTROPHILS 85.6 % (40-80); PLATELET COUNT 237 10x3/uL (130-400); RBC 3.59 10x6/uL (4.00-5.40); RDW 15.3 % (11.5-14.5); WBC 13.7 10x3/uL (4.8-10.8)
[2017-11-30 16:23] LABS: ALBUMIN 2.6 g/dL (3.4-5.0); ALKALINE PHOSPHATASE 136 U/L (46-116); ALT (SGPT) 15 U/L (10-68); BILIRUBIN - TOTAL 0.75 mg/dL (0.2-1.3); CALC OSMOLALITY 275 mosm/kg (275-300); CALCIUM 9.1 mg/dL (8.5-10.1); CHLORIDE - SERUM 96 mmol/L (98-107); CREATININE - SERUM 0.8 mg/dL (0.6-1.3); POTASSIUM - SERUM 3.7 mmol/L (3.5-5.1); PROTEIN - SERUM 6.8 g/dL (6.4-8.2); SODIUM 135 mmol/L (136-145); UREA NITROGEN 15 mg/dL (7-18); eGFR NON AFRICAN AMERICAN 74 mL/min (90-120)
[2017-11-30 16:25] LABS: GLUCOSE 189 mg/dL (74-106)
[2017-11-30 16:35] LABS: CHOL - HDL RATIO 2.2 ratio (2.3-4.1); CHOLESTEROL, TOTAL 96 mg/dL (0-200); CKMB 0.6 U/L (0.0-3.6); CREATINE KINASE 12 UL (21-215); HDL CHOLESTEROL 43 mg/dL (32-96); LDL CHOLESTEROL 31 mg/dL (0-100); LDL-HDL RATIO 0.7 ratio (1.5-3.5); TRIGLYCERIDE 113 mg/dL (30-200)
[2017-11-30 16:37] LABS: TROPONIN-I < 0.017 ng/mL (0.000-0.060)
[2017-11-30] MEDS ORDERED: DILAUDID2 MG PO (18:06)
[2017-11-30] MEDS ORDERED: LUMIGAN 0.01%2.5 ML LEFT EYE (18:18)
[2017-11-30] MEDS ORDERED: MELATONIN 3 MG1 TAB PO (18:20)
[2017-11-30] MEDS ORDERED: TRANSDERM-SCOP1.5 MG TD (18:27)
[2017-11-30 19:54] VITALS: BP 118/68; BMI 26.6
[2017-11-30 20:31] VITALS: BP 132/63
[2017-12-01 04:00] VITALS: BP 143/74
[2017-12-01 07:44] VITALS: BP 109/64
[2017-12-01 11:03] VITALS: Ht 162.6 cm; Wt 70.3 kg
[2017-12-01 11:23] VITALS: BP 104/66
[2017-12-01 15:46] VITALS: BP 106/61
[2017-12-01 19:43] VITALS: BP 144/76
[2017-12-02 00:51] VITALS: BP 145/68
[2017-12-02 04:53] VITALS: BP 137/72
[2017-12-02 07:00] VITALS: BP 136/85
[2017-12-02] MEDS ORDERED: PLAVIX75 MG PO (11:20)
[2017-12-02] MEDS ORDERED: TOPROL XL25 MG PO (11:21)
[2017-12-02] MEDS ORDERED: ASPIRIN81 MG PO (11:22)
== END 2017-12-02 14:13 | disposition home or self-care (01) ==
LOC: D.CATH 15:44 → D.M2 15:44 → D.ER 15:44 → EDSTATUS 17:53 → D.M2 17:55 → D.CATH 12-02 14:13
PROVIDERS: Family Medicine
DX: I21.19 ST elevation (STEMI) myocardial infarction involving other coronary artery of inferior wall (principal); I25.119 Atherosclerotic heart disease of native coronary artery with unspecified angina pectoris; Z95.5 Presence of coronary angioplasty implant and graft; J44.9 Chronic obstructive pulmonary disease, unspecified; Z01.812 Encounter for preprocedural laboratory examination